=== PATIENT | female | born 1955 | race Caucasian/White ===

== ENCOUNTER 2016-08-16 11:59 | Emergency (ER) | payer MEDICARE ==
[2016-08-16] MEDS ORDERED: ONDANSETRON 4 MG TAB.RAPDIS PO ONE (13:04)
[2016-08-16] MEDS ORDERED: ACETAMINOPHEN 325 MG TABLET PO ONE (13:04)
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
[2016-08-16 13:45] LABS: APPEARANCE,URINE SLIGHTLY-CLOUDY; BILIRUBIN,URINE NEGATIVE (NEGATIVE); GLUCOSE, URINE NEGATIVE (NEGATIVE); KETONES,URINE NEGATIVE (NEGATIVE); LEUKOCYTE ESTERASE,URINE TRACE (NEGATIVE); NITRITE,URINE NEGATIVE (NEGATIVE); PROTEIN,URINE NEGATIVE (NEGATIVE); URINE SPECIFIC GRAVITY 1.015; UROBILINOGEN,URINE NEGATIVE mg/dL (<2.0)
[2016-08-16 16:13] VITALS: BP 126/84
== END 2016-08-16 16:00 | disposition home or self-care (01) ==
LOC: ER 11:59
DX: S09.90XA Unspecified injury of head, initial encounter (principal); M79.1 Myalgia; R51 Headache; W19.XXXA Unspecified fall, initial encounter; R35.0 Frequency of micturition; R39.15 Urgency of urination; R11.0 Nausea; Z87.891 Personal history of nicotine dependence
CPT/HCPCS: 99284; 87086; 81001; 71101; 70450; A9270 ×2; S0119

== ENCOUNTER → 2016-10-05 | Outpatient (CLI) | payer MEDICARE ==
--- NOTE | 2016-10-06 08:09 | WOMENS IMAGING REPORT ---
EXAM DESCRIPTION: BILAT SCREENING MAMMO W/CAD COMPLETED DATE/TIME: 10/05/2016 11:18 am REASON FOR STUDY: Z12.31, ROUTINE SCREENING MAMMO Z12.31 ENCNTR SCREEN MAMMOGRAM FOR MALIGNANT NEOP LASM OF GURPREET COMPARISON: None. TECHNIQUE: Standard craniocaudal and mediolateral oblique views of each breast recorded using CDNliona l acquisition. LIMITATIONS: None. FINDINGS: No masses, calcifications or architectural distortion. No areas of suspicion. Read with the assistance of CAD. .[facility] - R2 Cenova Version 1.3 .[facility] - R2 Cenova Version 1.3 .[facility] - R2 Cenova Version 2.4 .[facility] - R2 Cenova Version 2.4 .[facility] - R2 [employer] Version 9.2 IMPRESSION: NORMAL MAMMOGRAM. BIRADS 1. BREAST DENSITY: b. There are scattered areas of fibroglandular density. BIRAD: 1 NEGATIVE RECOMMENDATION: ROUTINE SCREENING COMMENT: The patient has been notified of the results by letter per MQSA requirements. Additional no tification policies are in place for contacting patient with suspicious or incomplete findings. Quality ID #[id number]: The [employer] recommends an annual screening mammogram for women aged 40 years or over. This facility utilizes a reminder system to ensure that all patients receive reminder letters, and/or direct phone calls for appointments. This includes reminders for routine scr eening mammograms, diagnostic mammograms, or other Breast Imaging Interventions when appropriate. Th is patient will be placed in the appropriate reminder system. The [employer] (ACR) has developed recommendations for screening MRI of the breast s in certain patient populations, to be used in conjunction with mammography. Breast MRI surveillanc e may be appropriate for women with more than 20% lifetime risk of developing breast cancer as deter mined by genetic testing, significant family history of the disease, or history of mantle radiation f or Hodgkins Disease. ACR Practice Guidelines 2008. TECHNICAL DOCUMENTATION: FINDING NUMBER: (1) ASSESSMENT: (1) JOB ID: [id number] [employer]- All Rights Reserved
== END ==
LOC: WI 10:22
PROVIDERS: ATTEND Family Medicine Geriatric Medicine
DX: Z12.31 Encounter for screening mammogram for malignant neoplasm of breast (principal)
CPT/HCPCS: 77067; G0202

== ENCOUNTER → 2016-11-08 | Outpatient (CLI) | payer MEDICARE ==
--- NOTE | 2016-11-08 10:07 | RADIOLOGY REPORT (SQ) ---
EXAM DESCRIPTION: CT FACIAL AREA WITHOUT COMPLETED DATE/TIME: 11/08/2016 9:00 am REASON FOR STUDY: RECURRENT SINUSITIS J01.11 ACUTE RECURRENT FRONTAL SINUSITIS COMPARISON: None. TECHNIQUE: Noncontrast scanning through the paranasal sinuses using bone algorithm. Reconstructed MPR images reviewed. All images stored on PACS. Images acquired for image guided surgery. All CT scanners at this facility use dose modulation, iterative reconstruction, and/or weight based d osing when appropriate to reduce radiation dose to as low as reasonably achievable (ALARA). [facility]: Dose Right [facility]: CareDose [facility]: Dose Right [facility]: Teradose 4D [facility]: Captimo RADIATION DOSE: 44.5 mGy. FINDINGS: NASAL PASSAGES: Clear. No polyps or masses. OSTEOMEATAL UNITS AND NASOFRONTAL DUCTS: On the right side, the maxillary sinus outlet has been surgi janet widened. It is patent on coronal image 25. On the left side, there is mucous membrane thicken ing along the maxillary sinus outlet on coronal image 23 and axial image 19. Mucous membrane thicken ing with as anterior superior septum in the medial left maxillary sinus. Ostiomeatal complex is pres ent, best shown on axial image 22 and coronal images 20 through 24. MAXILLARY SINUSES: Right maxillary sinus is well pneumatized and clear. . Maxillary sinus outlets ar e patent. ETHMOID SINUSES: Post endoscopic sinus surgery with bilateral partial resection of the ethmoid septa. SPHENOID SINUSES: Well-pneumatized and clear. Sphenoid sinus outlets surgically widened on axial imag e 25 and sagittal images 23 and 29. No pneumatized dorsal sella. FRONTAL SINUSES: Well-pneumatized and clear. MASTOID AIR CELLS: Clear. ORBITS: Normal and symmetrical. NASAL SEPTUM: Mild rightward nasal septal deviation No nasal septal spurs. TEMPOROMANDIBULAR JOINTS: Normal. TURBINATES: No pneumatized turbinates. MUCOPERIOSTEAL THICKENING: No. MUCOCELE: No. OTHER: No other significant findings. IMPRESSION: NO EVIDENCE OF ACUTE SINUSITIS. Prior endoscopic sinus surgery as above TECHNICAL DOCUMENTATION: JOB ID: [id number] Quality ID # [id number]: Final reports with documentation of one or more dose reduction techniques (e.g., Au tomated exposure control, adjustment of the mA and/or kV according to patient size, use of iterative reconstruction technique) 2010 [employer]- All Rights Reserved
== END ==
LOC: RAD 08:31
PROVIDERS: ATTEND Family Medicine Geriatric Medicine
DX: J01.11 Acute recurrent frontal sinusitis (principal)
CPT/HCPCS: 70486

== ENCOUNTER 2016-12-04 12:19 | Emergency (ER) | payer MEDICARE ==
[2016-12-04 12:24] VITALS: BP 129/74
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
[2016-12-04] MEDS ORDERED: ACETAMINOPHEN 325 MG TABLET PO ONE (12:39)
[2016-12-04] MEDS ORDERED: BACITRACIN ZINC OINTMENT 15 GM TP ONE (12:59)
== END 2016-12-04 13:26 | disposition home or self-care (01) ==
LOC: ER 12:19
DX: T25.211A Burn of second degree of right ankle, initial encounter (principal); T31.0 Burns involving less than 10% of body surface; R21 Rash and other nonspecific skin eruption; X12.XXXA Contact with other hot fluids, initial encounter
CPT/HCPCS: 99283; A9270; J3490

== ENCOUNTER → 2017-01-17 | Outpatient (CLI) | payer MEDICARE ==
[2017-01-17 09:43] LABS: ABSOLUTE BASOPHILS # (AUTO) 0.1 10^3/uL (0.0-0.2); ABSOLUTE EOSINOPHILS # (AUTO) 0.3 10^3/uL (0.0-0.6); ABSOLUTE LYMPHOCYTES (AUTO) 2.8 10^3/uL (0.5-4.7); ABSOLUTE MONOCYTES (AUTO) 0.5 10^3/uL (0.1-1.4); ABSOLUTE NEUT (AUTO) 4.2 10^3/uL (1.7-8.2); BASOPHILS % (AUTO) 0.9 % (0-2); EOSINOPHILS % (AUTO) 3.7 % (0-6); HEMATOCRIT 38.8 % (36.0-47.0); HEMOGLOBIN 12.8 g/dL (12.0-15.5); HGB HCT DIFFERENCE -0.4; LYMPHOCYTES % (AUTO) 35.2 % (13-45); MEAN CORPUSCULAR HEMOGLOBIN 28.9 pg (27.0-33.4); MEAN CORPUSCULAR HGB CONC 32.9 g/dL (32.0-36.0); MEAN CORPUSCULAR VOLUME 88 fl (80-97); MONOCYTES % (AUTO) 6.9 % (3-13); RED BLOOD COUNT 4.41 10^6/uL (3.72-5.28); RED CELL DISTRIBUTION WIDTH 13.8 % (11.5-14.0); SEGMENTED NEUTROPHILS % (AUTO) 53.3 % (42-78); WHITE BLOOD COUNT 7.9 10^3/uL (4.0-10.5)
[2017-01-17 09:54] LABS: ALANINE AMINOTRANSFERASE 21 U/L (9-52); ALKALINE PHOSPHATASE 126 U/L (38-126); ANION GAP 8 (5-19); ASPARTATE AMINO TRANSFERASE 21 U/L (14-36); BILIRUBIN,DIRECT 0.4 mg/dL (0.0-0.4); BILIRUBIN,TOTAL 0.5 mg/dL (0.2-1.3); BLOOD UREA NITROGEN 23 mg/dL (7-20); CALCIUM 9.9 mg/dL (8.4-10.2); CARBON DIOXIDE 31 mmol/L (22-30); CHLORIDE 105 mmol/L (98-107); CHOLESTEROL 214.87 mg/dL (0-200); CREATININE RESULT 0.97 mg/dL (0.52-1.25); Direct HDL 51 mg/dL (>40); GLUCOSE 98 mg/dL (75-110); SODIUM 143.8 mmol/L (137-145); TOTAL PROTEIN 7.1 g/dL (6.3-8.2); TRIGLYCERIDES 168 mg/dL (<150)
[2017-01-17 10:05] LABS: DIRECT LDL 137 mg/dL (<100)
[2017-01-17 10:44] LABS: VLDL CHOLESTEROL 33.6 mg/dL (10-31)
[2017-01-18 12:38] LABS: CREATININE URINE 88.3 mg/dL (Not Estab.); MICROALBUMIN URINE 6.8 ug/mL (Not Estab.)
== END ==
LOC: OD 08:17
PROVIDERS: ATTEND Family Medicine Geriatric Medicine
DX: E11.9 Type 2 diabetes mellitus without complications (principal); E78.5 Hyperlipidemia, unspecified; E55.9 Vitamin D deficiency, unspecified; E53.9 Vitamin B deficiency, unspecified; Z79.899 Other long term (current) drug therapy
CPT/HCPCS: 36415; 80053; 80061; 82043; 82306; 82570; 82607; 83036; 84443; 85025

== ENCOUNTER → 2017-04-12 | Outpatient (CLI) | payer MEDICARE ==
[2017-04-12 10:54] LABS: ALANINE AMINOTRANSFERASE 28 U/L (9-52); ASPARTATE AMINO TRANSFERASE 20 U/L (14-36); CHOLESTEROL 205.64 mg/dL (0-200); Direct HDL 56 mg/dL (>40); TRIGLYCERIDES 140 mg/dL (<150)
[2017-04-12 11:05] LABS: DIRECT LDL 127 mg/dL (<100)
== END ==
LOC: OD 09:02
PROVIDERS: ATTEND Family Medicine Geriatric Medicine
DX: E11.42 Type 2 diabetes mellitus with diabetic polyneuropathy (principal); E78.5 Hyperlipidemia, unspecified; Z79.899 Other long term (current) drug therapy
CPT/HCPCS: 36415; 80061; 83036; 84450; 84460

== ENCOUNTER → 2017-08-17 | Outpatient (CLI) | payer MEDICARE ==
[2017-08-17 09:34] LABS: ALANINE AMINOTRANSFERASE 18 U/L (9-52); ASPARTATE AMINO TRANSFERASE 19 U/L (14-36); CHOLESTEROL 192.39 mg/dL (0-200); TRIGLYCERIDES 164 mg/dL (<150)
[2017-08-17 09:45] LABS: DIRECT LDL 104 mg/dL (<100)
[2017-08-17 09:49] LABS: VLDL CHOLESTEROL 32.8 mg/dL (10-31)
[2017-08-18 11:40] LABS: CREATININE URINE 70.5 mg/dL (Not Estab.); MICROALBUMIN URINE 4.9 ug/mL (Not Estab.)
== END ==
LOC: OD 08:24
PROVIDERS: ATTEND Family Medicine Geriatric Medicine
DX: E11.9 Type 2 diabetes mellitus without complications (principal); I10 Essential (primary) hypertension; E78.5 Hyperlipidemia, unspecified; Z29.9 Encounter for prophylactic measures, unspecified
CPT/HCPCS: 36415; 80061; 82043; 82570; 83036; 84450; 84460

== ENCOUNTER 2017-11-20 19:17 | Inpatient (IN) | payer MEDICARE ==
[2017-11-20] MEDS ORDERED: MORPHINE SULFATE 10 MG/ML INJ IV ONE ×2 (20:05→23:46)
[2017-11-20] MEDS ORDERED: ONDANSETRON 4 MG TAB.RAPDIS PO ONE (20:06)
--- NOTE | 2017-11-20 20:08 | ER Document Report ---
ED Medical Screen (RME) - General Chief Complaint: Abdominal Pain Stated Complaint: ABDOMINAL PAIN Time Seen by Provider: 11/20/17 19:57 Mode of Arrival: Ambulatory Information source: Patient Notes: 62-year-old female with hypertension, hyperlipidemia, type 2 diabetes, hypothyroidism, degenerative disc disease presents with complaint of right lower quadrant pain that started 1 day prior to arrival. Patient describes the pain as stabbing, intermittent with radiation to her right flank. Patient has had associated nausea with multiple episodes of vomiting. She has not had any diarrhea and reports her last bowel movement was today. She denies any black or bloody stools. She states that she has not been able to even hold down water since this morning. She denies any sick contacts, recent travel, recent antibiotic use. Patient's surgical history includes hysterectomy, gastric bypass and cholecystectomy. She is unsure of whether or not they took her appendix with the hysterectomy. Patient denies any associated chest pain, shortness of breath. I have greeted and performed a rapid initial assessment of this patient. A comprehensive ED assessment and evaluation of the patient including analysis of labs and imaging ( if obtained) and completion of medical decision making will be conducted by an additional ED provider. PHYSICAL EXAMINATION: GENERAL: Appears to be in pain rocking back and forth on the chair HEAD: Atraumatic, normocephalic. EYES: Pupils equal round extraocular movements intact, conjunctiva are normal. ENT: Nares patent NECK: Normal range of motion LUNGS: No respiratory distress Musculoskeletal: Normal range of motion NEUROLOGICAL: Normal speech, normal gait. PSYCH: Normal mood, normal affect. SKIN: Warm, Dry, normal turgor, no rashes or lesions noted. TRAVEL OUTSIDE OF THE [place] IN LAST 30 DAYS: No - Related Data Allergies/Adverse Reactions: ceftriaxone sodium [From Rocephin] Allergy (Severe, Verified 12/04/16 12:24) tongue swelling,DIFFICULTY BREATHING sulfamethoxazole [From Bactrim] Allergy (Severe, Verified 12/04/16 12:24) rash trimethoprim [From Bactrim] Allergy (Severe, Verified 12/04/16 12:24) rash Cephalosporins Allergy (Unknown, Verified 12/04/16 12:24) ? Past Medical History - Past Medical History Cardiac Medical History: Reports: Hx Hypercholesterolemia - CAD, Hx Hypertension Denies: Hx Atrial Fibrillation, Hx Congestive Heart Failure, Hx Coronary Artery Disease, Hx Heart Attack, Hx Peripheral Vascular Disease, Hx Pulmonary Embolism, Hx Heart Murmur Pulmonary Medical History: Reports: Hx Bronchitis, Hx Pneumonia Denies: Hx Asthma, Hx COPD, Hx Respiratory Failure, Hx Sleep Apnea, Hx Tuberculosis Neurological Medical History: Denies: Hx Cerebrovascular Accident, Hx Seizures Endocrine Medical History: Reports: Hx Diabetes Mellitus Type 2 - IDDM., Hx Hypothyroidism. Denies: Hx Graves' Disease, Hx Hyperthyroidism Renal/ Medical History: Reports: Hx Ovarian Cysts - HAD HYSTERECTOMY. Denies : Hx End Stage Renal Disease, Hx Kidney Stones, Hx Peritoneal Dialysis, Hx Pelvic Inflammatory Disease Malignancy Medical History: Denies: Hx Breast Cancer, Hx Cervical Cancer, Hx Leukemia, Hx Lung Cancer, Hx Ovarian Cancer GI Medical History: Reports: Hx Gastritis, Hx Gastroesophageal Reflux Disease, Hx Hiatal Hernia, Hx Colonoscopy, Hx Endoscopy. Denies: Hx Crohn's Disease, Hx Irritable Bowel, Hx Liver Failure, Hx Pancreatitis, Hx Ulcer Musculoskeltal Medical History: Reports Hx Arthritis, Denies Hx Fibromyalgia, Denies Hx Multiple Sclerosis, Denies Hx Muscular Dystrophy, Reports Hx Muscle Spasm - neck and low back, see's bashir pain mangement, receiving injections, Reports Hx Musculoskeletal Deformity - Kyphosis, Reports Hx Musculoskeletal Trauma Psychiatric Medical History: Reports: Hx Anxiety, Hx Depression - WITH ANXIETY Denies: Hx Bipolar Disorder, Hx Dementia, Hx Post Traumatic Stress Disorder, Hx Schizophrenia Traumatic Medical History: Reports: Hx Fractures - Wrist and orbital, Hx Pneumothorax Infectious Medical History: Denies: Hx HIV Past Surgical History: Reports: Hx Cardiac Surgery - ASD repair, Hx Section, Hx Cholecystectomy, Hx Gastric Bypass Surgery - 2005, Hx Hysterectomy, Hx Orthopedic Surgery - Knee replacement. Denies: Hx Appendectomy, Hx Bowel Surgery, Hx Colostomy, Hx Coronary Artery Bypass Graft, Hx Herniorrhaphy, Hx Mastectomy, Hx Pacemaker, Hx Tonsillectomy, Hx Tubal Ligation - Immunizations Immunizations up to date: Yes Hx Diphtheria, Pertussis, Tetanus Vaccination: Yes Physical Exam - Vital signs Vitals: Temp Pulse Resp BP Pulse Ox 99.2 F 79 17 129/65 H 97 11/20/17 19:35 11/20/17 19:35 11/20/17 19:35 11/20/17 19:35 11/20/17 19:35 Course - Vital Signs Vital signs: Temp Pulse Resp BP Pulse Ox 99.2 F 79 17 129/65 H 97 11/20/17 19:35 11/20/17 19:35 11/20/17 19:35 11/20/17 19:35 11/20/17 19:35 Doctor's Discharge - Discharge Referrals: OTTONIEL ROSSI MD [Primary Care Provider] - Follow up as needed
--- NOTE | 2017-11-20 20:27 | ER Document Report ---
ED General - General Chief Complaint: Abdominal Pain Stated Complaint: ABDOMINAL PAIN Time Seen by Provider: 11/20/17 19:57 Mode of Arrival: Ambulatory Information source: Patient Notes: 62-year-old female presents emergency department with complaints of right lower quadrant pain. This started a day prior to arrival. Patient describes the pain as a sharp and stabbing sensation. Intermittent in nature. She is having associated nausea and vomiting. She denies any diarrhea. Patient denies any hematemesis, hematuria, melena, hematochezia. Patient has had hysterectomy, gastric bypass, cholecystectomy. Patient is unsure she still has her appendix. TRAVEL OUTSIDE OF THE [place] IN LAST 30 DAYS: No - HPI Onset: This morning Onset/Duration: Sudden Quality of pain: Sharp, Stabbing Severity: Moderate Associated symptoms: Nausea, Vomiting Exacerbated by: Denies Relieved by: Denies Similar symptoms previously: No Recently seen / treated by doctor: No - Related Data Allergies/Adverse Reactions: ceftriaxone sodium [From Rocephin] Allergy (Severe, Verified 12/04/16 12:24) tongue swelling,DIFFICULTY BREATHING sulfamethoxazole [From Bactrim] Allergy (Severe, Verified 12/04/16 12:24) rash trimethoprim [From Bactrim] Allergy (Severe, Verified 12/04/16 12:24) rash Cephalosporins Allergy (Unknown, Verified 12/04/16 12:24) ? Past Medical History - General Information source: Patient - Social History Smoking Status: Never Smoker Frequency of alcohol use: None Family History: Arthritis, COPD, CVA, DM, Hyperlipidemia, Hypertension, Malignancy, Thyroid Disfunction Patient has suicidal ideation: No Patient has homicidal ideation: No - Past Medical History Cardiac Medical History: Reports: Hx Hypercholesterolemia - CAD, Hx Hypertension Denies: Hx Atrial Fibrillation, Hx Congestive Heart Failure, Hx Coronary Artery Disease, Hx Heart Attack, Hx Peripheral Vascular Disease, Hx Pulmonary Embolism, Hx Heart Murmur Pulmonary Medical History: Reports: Hx Bronchitis, Hx Pneumonia Denies: Hx Asthma, Hx COPD, Hx Respiratory Failure, Hx Sleep Apnea, Hx Tuberculosis Neurological Medical History: Denies: Hx Cerebrovascular Accident, Hx Seizures Endocrine Medical History: Reports: Hx Diabetes Mellitus Type 2 - IDDM., Hx Hypothyroidism. Denies: Hx Graves' Disease, Hx Hyperthyroidism Renal/ Medical History: Reports: Hx Ovarian Cysts - HAD HYSTERECTOMY. Denies : Hx End Stage Renal Disease, Hx Kidney Stones, Hx Peritoneal Dialysis, Hx Pelvic Inflammatory Disease Malignancy Medical History: Denies: Hx Breast Cancer, Hx Cervical Cancer, Hx Leukemia, Hx Lung Cancer, Hx Ovarian Cancer GI Medical History: Reports: Hx Gastritis, Hx Gastroesophageal Reflux Disease, Hx Hiatal Hernia, Hx Colonoscopy, Hx Endoscopy. Denies: Hx Crohn's Disease, Hx Irritable Bowel, Hx Liver Failure, Hx Pancreatitis, Hx Ulcer Musculoskeletal Medical History: Reports Hx Arthritis, Denies Hx Fibromyalgia, Denies Hx Multiple Sclerosis, Denies Hx Muscular Dystrophy, Reports Hx Muscle Spasm - neck and low back, see's bashir pain mangement, receiving injections, Reports Hx Musculoskeletal Deformity - Kyphosis, Reports Hx Musculoskeletal Trauma Psychiatric Medical History: Reports: Hx Anxiety, Hx Depression - WITH ANXIETY Denies: Hx Bipolar Disorder, Hx Dementia, Hx Post Traumatic Stress Disorder, Hx Schizophrenia Traumatic Medical History: Reports: Hx Fractures - Wrist and orbital, Hx Pneumothorax Infectious Medical History: Denies: Hx HIV Past Surgical History: Reports: Hx Cardiac Surgery - ASD repair, Hx Section, Hx Cholecystectomy, Hx Gastric Bypass Surgery - 2005, Hx Hysterectomy, Hx Orthopedic Surgery - Knee replacement. Denies: Hx Appendectomy, Hx Bowel Surgery, Hx Colostomy, Hx Coronary Artery Bypass Graft, Hx Herniorrhaphy, Hx Mastectomy, Hx Pacemaker, Hx Tonsillectomy, Hx Tubal Ligation - Immunizations Immunizations up to date: Yes Hx Diphtheria, Pertussis, Tetanus Vaccination: Yes Hx Pneumococcal Vaccination: 05/09/06 Review of Systems - Review of Systems Constitutional: No symptoms reported EENT: No symptoms reported Cardiovascular: No symptoms reported Respiratory: No symptoms reported Gastrointestinal: Abdominal pain, Nausea, Vomiting Genitourinary: No symptoms reported Female Genitourinary: No symptoms reported Musculoskeletal: No symptoms reported Skin: No symptoms reported Neurological/Psychological: No symptoms reported -: Yes All other systems reviewed and negative Physical Exam - Vital signs Vitals: Temp Pulse Resp BP Pulse Ox 99.2 F 79 17 129/65 H 97 11/20/17 19:35 11/20/17 19:35 11/20/17 19:35 11/20/17 19:35 11/20/17 19:35 Interpretation: Normal - Notes Notes: PHYSICAL EXAMINATION: GENERAL: Well-appearing, well-nourished and in no acute distress. HEAD: Atraumatic, normocephalic. EYES: Pupils equal round and reactive to light, extraocular movements intact, conjunctiva are normal. ENT: Nares patent, oropharynx clear without exudates. Moist mucous membranes. NECK: Normal range of motion, supple without lymphadenopathy LUNGS: Breath sounds clear to auscultation bilaterally and equal. No wheezes rales or rhonchi. HEART: Regular rate and rhythm without murmurs ABDOMEN: Soft, tenderness to palpation in the right lower quadrant, nondistended abdomen. No guarding, no rebound. No masses appreciated. Female : deferred Musculoskeletal: Normal range of motion, no pitting or edema. No cyanosis. NEUROLOGICAL: Cranial nerves grossly intact. Normal speech, normal gait. Normal sensory, motor exams PSYCH: Normal mood, normal affect. SKIN: Warm, Dry, normal turgor, no rashes or lesions noted. Course - Re-evaluation Re-evalutation: 11/20/17 23:46 Dr. Angelo contacted for ileus vs partial small bowel obstruction. He does not feel any intervention is needed at this time. 11/20/17 23:[address] Martinez. He does not want to admit this patient because he feels this is a surgical case. Dr. Angelo consulted again. He recommends CT with oral contrast. If no clear small bowel obstruction he wants admit to hospitalist. 11/21/17 00:11 Patient turned over at end of shift. - Vital Signs Vital signs: Temp Pulse Resp BP Pulse Ox 99.2 F 79 17 129/65 H 97 11/20/17 19:35 11/20/17 19:35 11/20/17 19:35 11/20/17 19:35 11/20/17 19:35 - Laboratory Result Diagrams: 11/20/17 21:40 11/20/17 21:40 Laboratory results interpreted by me: 11/20/17 11/20/17 11/20/17 21:40 21:40 23:15 WBC 12.3 H Absolute Neutrophils 9.2 H Sodium 146.4 H BUN 29 H Est GFR ( Amer) 59 L Est GFR (Non-Af Amer) 49 L Ur Leukocyte Esterase MODERATE H Discharge - Discharge Referrals: OTTONIEL ROSSI MD [COMMUNITY BASED STAFF] - Follow up as needed
[2017-11-20 22:04] LABS: ABSOLUTE BASOPHILS # (AUTO) 0.1 10^3/uL (0.0-0.2); ABSOLUTE EOSINOPHILS # (AUTO) 0.1 10^3/uL (0.0-0.6); ABSOLUTE LYMPHOCYTES (AUTO) 2.1 10^3/uL (0.5-4.7); ABSOLUTE MONOCYTES (AUTO) 0.8 10^3/uL (0.1-1.4); ABSOLUTE NEUT (AUTO) 9.2 10^3/uL (1.7-8.2); BASOPHILS % (AUTO) 0.8 % (0-2); EOSINOPHILS % (AUTO) 0.9 % (0-6); HEMATOCRIT 39.7 % (36.0-47.0); HEMOGLOBIN 13.6 g/dL (12.0-15.5); LYMPHOCYTES % (AUTO) 17.1 % (13-45); MEAN CORPUSCULAR HEMOGLOBIN 31.1 pg (27.0-33.4); MEAN CORPUSCULAR HGB CONC 34.3 g/dL (32.0-36.0); MEAN CORPUSCULAR VOLUME 91 fl (80-97); MONOCYTES % (AUTO) 6.1 % (3-13); PLATELET COUNT 312 10^3/uL (150-450); RED BLOOD COUNT 4.37 10^6/uL (3.72-5.28); RED CELL DISTRIBUTION WIDTH 13.4 % (11.5-14.0); SEGMENTED NEUTROPHILS % (AUTO) 75.1 % (42-78); TOTAL CELLS COUNTED % (AUTO) 100 %; WHITE BLOOD COUNT 12.3 10^3/uL (4.0-10.5)
[2017-11-20 22:27] LABS: ALANINE AMINOTRANSFERASE 20 U/L (9-52); ALBUMIN 4.4 g/dL (3.5-5.0); ALKALINE PHOSPHATASE 99 U/L (38-126); ANION GAP 14 (5-19); ASPARTATE AMINO TRANSFERASE 31 U/L (14-36); BILIRUBIN,DIRECT 0.4 mg/dL (0.0-0.4); BILIRUBIN,TOTAL 0.5 mg/dL (0.2-1.3); BLOOD UREA NITROGEN 29 mg/dL (7-20); CALCIUM 9.9 mg/dL (8.4-10.2); CARBON DIOXIDE 25 mmol/L (22-30); CHLORIDE 107 mmol/L (98-107); GLUCOSE 106 mg/dL (75-110); LIPASE 96.4 U/L (23-300); POTASSIUM 4.5 mmol/L (3.6-5.0); SODIUM 146.4 mmol/L (137-145); TOTAL PROTEIN 7.9 g/dL (6.3-8.2)
[2017-11-20] MEDS ORDERED: NORMAL SALINE 1000 ML 1,000 ML IV ONE (23:22)
--- NOTE | 2017-11-20 23:32 | RADIOLOGY REPORT (SQ) ---
EXAM DESCRIPTION: CT ABDOMEN PELVIS WITH IV CONTRAST COMPLETED DATE/TME: 11/20/2017 20:06 CLINICAL HISTORY: Right lower quadrant abdominal pain. BUN29 CREA 1.13 COMPARISON: 10/30/2014 TECHNIQUE: CT of the abdomen and pelvis performed following IV administration of 92 mL of Isovue-370. DLP: 1925.70 mGycm FINDINGS: Lung Bases: The visualized lung bases are clear. Coronary artery atherosclerosis. Bones: No destructive bone lesions identified. Age-indeterminate compression deformity of the T11 vertebral body. Abdomen: Liver: The liver has normal size and density. No intrahepatic mass or biliary dilatation. Gallbladder: Prior cholecystectomy. Spleen, Pancreas, and Adrenal Glands: The spleen, pancreas, and adrenal glands are unremarkable. Kidneys: The kidneys have normal size and contour without evidence of solid mass or hydronephrosis. Vasculature: Atherosclerotic calcification The portal vein is patent. The proximal visceral and renal arteries are patent. Stomach: Postoperative change of the stomach. Other: No free intraperitoneal air. No free fluid or lymphadenopathy. Pelvis: Bladder: Urinary bladder is unremarkable. Bowel: Scattered diverticula colon without pericolic inflammatory change. Dilated loops of small bowel throughout the abdomen without definite transition point identified. Appendix: Normal appendix. Pelvis: Prostate is not enlarged. IMPRESSION: 1. Dilated loops of small bowel throughout the abdomen without well-defined transition point identified. These findings could be seen with ileus or may be related to partial obstruction at the ileocecal valve. 2. Scattered diverticula colon without acute diverticulitis. This exam was performed according to our departmental dose-optimization program, which includes automated exposure control, adjustment of the mA and/or kV according to patient size and/or use of iterative reconstruction technique.
[2017-11-20 23:40] LABS: APPEARANCE,URINE CLEAR; BILIRUBIN,URINE NEGATIVE (NEGATIVE); COLOR,URINE YELLOW; GLUCOSE, URINE NEGATIVE (NEGATIVE); KETONES,URINE NEGATIVE (NEGATIVE); LEUKOCYTE ESTERASE,URINE MODERATE (NEGATIVE); NITRITE,URINE NEGATIVE (NEGATIVE); PROTEIN,URINE NEGATIVE (NEGATIVE); URINE SPECIFIC GRAVITY 1.028; UROBILINOGEN,URINE NEGATIVE mg/dL (<2.0)
[2017-11-20] MEDS ORDERED: PROMETHAZINE HCL INJ 25 MG/1 ML VIAL IV ONE (23:48)
[2017-11-21] MEDS ORDERED: PROMETHAZINE HCL INJ 25 MG/1 ML VIAL IM ONE (00:38)
--- NOTE | 2017-11-21 04:26 | RADIOLOGY REPORT (SQ) ---
EXAM DESCRIPTION: CT ABDOMEN PELVIS WITHOUT IV CONTRAST COMPLETED DATE/TME: 11/20/2017 23:58 CLINICAL HISTORY: Diffuse COMPARISON: 11/20/2017 TECHNIQUE: CT of the abdomen and pelvis without IV contrast. Oral contrast administered. Evaluation of the solid organs and vasculature is suboptimal due to lack of IV contrast. DLP: 938.65 mGy-cm FINDINGS: Lung Bases: The visualized lung bases are clear. Coronary artery atherosclerosis. Bones: No destructive bone lesions identified. Stable age-indeterminate compression deformity of T11 Abdomen: Liver: The liver has normal size and density. Gallbladder: No calcified gallstones. Spleen, Pancreas, and Adrenal Glands: The spleen, pancreas, and adrenal glands are unremarkable. Kidneys: The kidneys have normal size and contour without evidence of hydronephrosis. No obstructing ureteral calculi. Vasculature: Aortoiliac atherosclerosis. IVC is unremarkable. Stomach: Postoperative change of the stomach. Other: No free intraperitoneal air. No free fluid or lymphadenopathy. Pelvis: Bladder: Urinary bladder is unremarkable. Bowel: Scattered diverticula colon. Oral contrast administered. Redemonstrated diffusely dilated loops of distal small bowel throughout the abdomen without transition point. Oral contrast does not proceed to the ileocecal valve. Appendix: Normal appendix. Pelvis: Prostate is not enlarged. IMPRESSION: 1. Redemonstrated dilated loops of distal small bowel without definite finding transition point identified. Administered oral contrast does not proceed throughout the entire length of the small bowel. Contrast is not visualized proceeding to the ileocecal valve into the colon. These findings could be seen with ileus or partial obstruction at the level of the ileocecal valve. 2. Scattered diverticula of the colon. This exam was performed according to our departmental dose-optimization program, which includes automated exposure control, adjustment of the mA and/or kV according to patient size and/or use of iterative reconstruction technique.
[2017-11-21] MEDS ORDERED: LIDOCAINE 2% JELLY 5 ML TUBE TOP ONE (04:47)
[2017-11-21] MEDS ORDERED: INSULIN LISPRO 100 UNIT/ML 3 ML VIAL SUBCUT PRN (04:48)
[2017-11-21] MEDS ORDERED: DEXTROSE 40% GEL 15 GM TUBE PO PRN ×2 (04:48)
[2017-11-21] MEDS ORDERED: IPRATROPIUM/ALBUTEROL 0.5-2.5 MG/3 ML AMPUL NEB PRN (04:48)
[2017-11-21] MEDS ORDERED: GLUCAGON,HUMAN RECOMB 1 MG INJ IM PRN (04:48)
[2017-11-21] MEDS ORDERED: DEXTROSE 50%-WATER 25 GM/50 ML DISP.SYRIN IV PRN ×2 (04:48)
[2017-11-21] MEDS ORDERED: MIDAZOLAM 2 MG/2 ML INJ IV ONE (04:50)
[2017-11-21] MEDS ORDERED: LACTULOSE SYRUP 20 GM/30 ML UDCUP PR ONE (04:51)
[2017-11-21] MEDS ORDERED: DEXTROSE 5%-1/2 NORMAL SALINE 1,000 ML IV ONE (04:52)
[2017-11-21] MEDS: HEPARIN SOD (PORCINE) 5,000 UNIT/ML 1 ML SYRINGE SUBCUT SCH ×3 (05:31→21:11)
[2017-11-21] MEDS ORDERED: HYDRALAZINE HCL INJ/PF 20 MG/1 ML SDV IV PRN (05:40)
--- NOTE | 2017-11-21 05:52 | PDOC H&P ---
History of Present Illness Admission Date/PCP: 11/21/17 05:02 JAXON MCCORMICK MD Patient complains of: Abdominal pain, distention and nausea History of Present Illness: ESTRADA TORRES is a 62 year old female with a past medical history of diabetes, depression, hypertension, dyslipidemia and chronic pain. She presents 18 hours following the abrupt onset of abdominal pain with vomiting of gastric content. Pain, shortness of breath or diaphoresis. She denies previous episode, constipation and otherwise feels well. In the emergency room she has a CT abdomen with contrast showing ileus versus small bowel obstruction. History includes multiple pelvic and abdominal surgeries, gastric bypass, cholecystectomy and section 3. Following contrast administration she has several episodes of loose stool but persistent abdominal pain, NG tube was placed and she is referred to the hospitalist for admission. Past Medical History Cardiac Medical History: Reports: Hyperlipidema - CAD, Hypertension Denies: Atrial Fibrillation, Congestive Heart Failure, Coronary Artery Disease, Myocardial Infarction, Peripheral Vascular Disease, Pulmonary Embolism , Heart Murmur Pulmonary Medical History: Reports: Bronchitis, Pneumonia Denies: Asthma, Chronic Obstructive Pulmonary Disease (COPD), Respiratory Failure, Sleep Apnea, Tuberculosis Neurological Medical History: Denies: Seizures Endocrine Medical History: Reports: Diabetes Mellitus Type 2 - IDDM., Hypothyroidism Denies: Hyperthyroidism Renal/ Medical History: Denies: End Stage Renal Disease Malignancy Medical History: Denies: Breast Cancer, Cervical Cancer, Leukemia, Lung Cancer, Ovarian Cancer GI Medical History: Reports: Gastroesophageal Reflux Disease, Hiatal Hernia Denies: Crohn's Disease Musculoskeltal Medical History: Reports: Arthritis Denies: Fibromyalgia Psychiatric Medical History: Reports: Depression - WITH ANXIETY Denies: Bipolar Disorder, Dementia, Post Traumatic Stress Disorder Traumatic Medical History: Reports: Pneumothorax Hematology: Reports: Anemia - BLOOD TRANSFUSION (2012) Denies: Hemophilia, Sickle Cell Disease Infectious Medical History: Denies: HIV Past Surgical History Past Surgical History: Reports: Section, Cholecystectomy, Gastric Bypass Surgery - 2006, Hysterectomy, Orthopedic Surgery - Knee replacement Denies: Amputation, Appendectomy, Colostomy, Coronary Artery Bypass Graft, Herniorrhaphy, Mastectomy, Pacemaker, Tonsillectomy, Tubal Ligation Social History Information Source: Patient Smoking Status: Former Smoker Frequency of Alcohol Use: None Hx Recreational Drug Use: No Drugs: None Hx Prescription Drug Abuse: No - Advance Directive Resuscitation Status: Full Code Family History Family History: Arthritis, COPD, CVA, DM, Hyperlipidemia, Hypertension, Malignancy, Thyroid Disfunction Parental Family History Reviewed: Yes Children Family History Reviewed: Yes Sibling(s) Family History Reviewed.: Yes Medication/Allergy Home Medications: Bupropion HCl [Bupropion Xl] 1 tab PO QAM 04/20/15 Buspirone HCl 15 mg PO TID 04/20/15 Citalopram Hydrobromide [Citalopram HBr] 40 mg PO DAILY 04/20/15 Clotrimazole/Betamethasone Dip [Clotrimazole-Betamethasone Crm] 15 gm TP ASDIR PRN 04/20/15 Diclofenac Sodium [Voltaren] 1 applic TOP BID 04/20/15 Eletriptan Hydrobromide [Relpax] 40 mg PO ASDIR PRN 04/20/15 Furosemide 40 mg PO DAILY 04/20/15 Insulin Glargine,Hum.rec.anlog [Lantus Insulin 100 Unit/mL] 50 unit SQ BID 04/20 Levothyroxine Sodium 150 mcg PO DAILY 04/20/15 Metoprolol Tartrate 25 mg PO DAILY 04/20/15 Acetaminophen [Tylenol 325 mg Tablet] 650 mg PO QIDP PRN #0 tablet 04/23/15 Aspirin 81 mg PO DAILY 09/19/15 Atorvastatin Calcium 40 mg PO DAILY 09/19/15 Cholecalciferol (Vitamin D3) [Vitamin D3 1000 unit Chewable Tablet] 1,000 unit PO DAILY 09/19/15 Cyanocobalamin (Vitamin B-12) [Vitamin B12] 2,500 mcg PO DAILY 09/19/15 Dexlansoprazole [Dexilant 30 mg Capsule] 30 mg PO DAILY 09/19/15 Ferrous Sulfate [Feosol] 325 mg PO DAILY 09/19/15 Gabapentin 300 mg PO QID 09/19/15 Meloxicam [Mobic 15 mg Tablet] 15 mg PO DAILY 09/19/15 Montelukast Sodium 10 mg PO DAILY 09/19/15 Nitroglycerin [Nitrostat] 0.3 mg SL ASDIR PRN 09/19/15 Rivaroxaban [Xarelto 10 mg Tablet] 10 mg PO QHS #0 tablet 09/26/15 Allergies/Adverse Reactions: ceftriaxone sodium [From Rocephin] Allergy (Severe, Verified 12/04/16 12:24) tongue swelling,DIFFICULTY BREATHING sulfamethoxazole [From Bactrim] Allergy (Severe, Verified 12/04/16 12:24) rash trimethoprim [From Bactrim] Allergy (Severe, Verified 12/04/16 12:24) rash Cephalosporins Allergy (Unknown, Verified 12/04/16 12:24) ? Review of Systems Constitutional: ABSENT: chills, fever(s), headache(s), weight gain, weight loss Eyes: ABSENT: visual disturbances Ears: ABSENT: hearing changes Cardiovascular: ABSENT: chest pain, dyspnea on exertion, edema, orthropnea, palpitations Respiratory: ABSENT: cough, hemoptysis Gastrointestinal: ABSENT: abdominal pain, constipation, diarrhea, hematemesis, hematochezia, nausea, vomiting Genitourinary: ABSENT: dysuria, hematuria Musculoskeletal: ABSENT: joint swelling Integumentary: ABSENT: rash, wounds Neurological: ABSENT: abnormal gait, abnormal speech, confusion, dizziness, focal weakness, syncope Psychiatric: ABSENT: anxiety, depression, homidical ideation, suicidal ideation Endocrine: ABSENT: cold intolerance, heat intolerance, polydipsia, polyuria Hematologic/Lymphatic: ABSENT: easy bleeding, easy bruising Physical Exam Vital Signs: Temp Pulse Resp BP Pulse Ox 98.2 F 89 20 118/51 L 95 11/21/17 03:47 11/21/17 03:47 11/21/17 03:47 11/21/17 03:47 11/21/17 03:47 General appearance: PRESENT: cooperative, mild distress, obese. ABSENT: disheveled Head exam: PRESENT: atraumatic, normocephalic Eye exam: PRESENT: conjunctiva pink, EOMI, PERRLA. ABSENT: scleral icterus Ear exam: PRESENT: normal external ear exam Mouth exam: PRESENT: moist, tongue midline Neck exam: ABSENT: carotid bruit, JVD, lymphadenopathy, thyromegaly Respiratory exam: PRESENT: clear to auscultation joanne. ABSENT: rales, rhonchi, wheezes Cardiovascular exam: PRESENT: RRR. ABSENT: diastolic murmur, rubs, systolic murmur Pulses: PRESENT: normal dorsalis pedis pul Vascular exam: PRESENT: normal capillary refill GI/Abdominal exam: PRESENT: diminished bowel sounds, distended, soft, tenderness. ABSENT: ascites, firm, guarding, normal bowel sounds Rectal exam: PRESENT: deferred Extremities exam: PRESENT: full ROM. ABSENT: calf tenderness, clubbing, pedal edema Neurological exam: PRESENT: alert, awake, oriented to person, oriented to place , oriented to time, oriented to situation, CN II-XII grossly intact. ABSENT: motor sensory deficit Psychiatric exam: PRESENT: appropriate affect, normal mood. ABSENT: homicidal ideation, suicidal ideation Skin exam: PRESENT: dry, intact, warm. ABSENT: cyanosis, rash Results Impressions: Abdomen/Pelvis CT 11/20/17 23:58 IMPRESSION: 1. Redemonstrated dilated loops of distal small bowel without definite finding transition point identified. Administered oral contrast does not proceed throughout the entire length of the small bowel. Contrast is not visualized proceeding to the ileocecal valve into the colon. These findings could be seen with ileus or partial obstruction at the level of the ileocecal valve. 2. Scattered diverticula of the colon. This exam was performed according to our departmental dose-optimization program, which includes automated exposure control, adjustment of the mA and/or kV according to patient size and/or use of iterative reconstruction technique. Assessment & Plan - Diagnosis (1) Partial small bowel obstruction Is this a current diagnosis for this admission?: Yes Plan: Complicated by multiple abdominal and pelvic surgeries. Bowel rest, NG tube to intermittent suction, symptomatic management and surgical consult. Follow-up CBC and chemistry (2) Hypertension Is this a current diagnosis for this admission?: Yes Plan: IV hydralazine as needed (3) Diabetes Is this a current diagnosis for this admission?: Yes Plan: Hold outpatient regiment with Humalog sliding scale every 6 hours while n.p.o. - Time Time Spent: 50 to 70 Minutes - Inpatient Certification Medical Necessity: Need Close Monitoring Due to Risk of Patient Decompensation
[2017-11-21 06:07] LABS: PHOSPHORUS 5.2 mg/dL (2.5-4.5)
--- NOTE | 2017-11-21 07:56 | RADIOLOGY REPORT (SQ) ---
EXAM DESCRIPTION: CHEST SINGLE VIEW COMPLETED DATE/TIME: 11/21/2017 6:43 am REASON FOR STUDY: NGT placement confirmation COMPARISON: CT abdomen pelvis 11/21/2017 Two-view chest 09/04/2015 EXAM PARAMETERS: NUMBER OF VIEWS: One view. TECHNIQUE: Single frontal radiographic view of the chest acquired. RADIATION DOSE: NA LIMITATIONS: AP chest film for nasogastric tube placement FINDINGS: AP portable chest/upper abdomen film for nasogastric tube placement. Nasogastric tube tip and side port is in the stomach. Stomach is partially decompressed. Bibasilar atelectasis is present. Persistent borderline dilated small bowel loops with air-fluid levels in the mid epigastrium IMPRESSION: Nasogastric tube tip and side port in the stomach TECHNICAL DOCUMENTATION: JOB ID: [id number] [employer]- All Rights Reserved Reading location - IP/workstation name: [email or web address]
--- NOTE | 2017-11-21 10:15 | Progress Note ---
Provider Note Provider Note: ESTRADA TORRES is a 62 year old female with a past medical history of diabetes, depression, hypertension, dyslipidemia and chronic pain. Patient presented with 18-hour history of abdominal pain. Her CT scan of the abdomen and pelvis reported as ileus versus small bowel obstruction. Patient kept n.p.o., NG tube inserted and she is being hydrated cautiously. Of note patient has multiple bowel surgery. This morning I consulted Dr. Porter for further evaluation and management. Accepted the patient I will be her primary attending.
[2017-11-21] MEDS: ASPIRIN 81 MG TABLET, CHEWABLE PO SCH (11:56)
[2017-11-21] MEDS: KETOROLAC TROMETHAMINE INJ/PF 30 MG/1 ML SDV IV PRN ×2 (13:16→20:23)
[2017-11-21] MEDS ORDERED: NORMAL SALINE 1000 ML 1,000 ML IV PRN (15:53)
[2017-11-21] MEDS ORDERED: DEXTROSE 5%-NORMAL SALINE 1,000 ML IV PRN (16:32)
--- NOTE | 2017-11-21 20:18 | PDOC CONSULTATION ---
Consultation Consult Date: 11/21/17 Consult reason:: abdominal pains with N/V History of Present Illness Admission Date/PCP: 11/21/17 05:02 JAXON MCCORMICK MD History of Present Illness: ESTRADA TORRES is a 62 year old female with history of 3 CS, Lap Felicia prior to gastric bypass in 2006, c/o upper abdominal pains with N/V past 2-3 days. Went to ED last night and had a CT scan which showed parial SBO. This am had diarrhea with flatus. Past Medical History Cardiac Medical History: Reports: Hyperlipidema - CAD, Hypertension Denies: Atrial Fibrillation, Congestive Heart Failure, Coronary Artery Disease, Myocardial Infarction, Peripheral Vascular Disease, Pulmonary Embolism , Heart Murmur Pulmonary Medical History: Reports: Bronchitis, Pneumonia Denies: Asthma, Chronic Obstructive Pulmonary Disease (COPD), Respiratory Failure, Sleep Apnea, Tuberculosis Neurological Medical History: Denies: Seizures Endocrine Medical History: Reports: Diabetes Mellitus Type 2 - IDDM., Hypothyroidism Denies: Hyperthyroidism Renal/ Medical History: Denies: End Stage Renal Disease Malignancy Medical History: Denies: Breast Cancer, Cervical Cancer, Leukemia, Lung Cancer, Ovarian Cancer GI Medical History: Reports: Gastroesophageal Reflux Disease, Hiatal Hernia Denies: Crohn's Disease Musculoskeltal Medical History: Reports: Arthritis Denies: Fibromyalgia Psychiatric Medical History: Reports: Depression - WITH ANXIETY Denies: Bipolar Disorder, Dementia, Post Traumatic Stress Disorder Traumatic Medical History: Reports: Pneumothorax Hematology: Reports: Anemia - BLOOD TRANSFUSION (2012) Denies: Hemophilia, Sickle Cell Disease Infectious Medical History: Denies: HIV Past Surgical History Past Surgical History: Reports: Section, Cholecystectomy, Gastric Bypass Surgery - 2005, Hysterectomy, Orthopedic Surgery - Knee replacement Denies: Amputation, Appendectomy, Colostomy, Coronary Artery Bypass Graft, Herniorrhaphy, Mastectomy, Pacemaker, Tonsillectomy, Tubal Ligation Social History Smoking Status: Former Smoker Frequency of Alcohol Use: None Hx Recreational Drug Use: No Drugs: None Hx Prescription Drug Abuse: No - Advance Directive Resuscitation Status: Full Code Family History Family History: Arthritis, COPD, CVA, DM, Hyperlipidemia, Hypertension, Malignancy, Thyroid Disfunction Parental Family History Reviewed: Yes Children Family History Reviewed: No Sibling(s) Family History Reviewed.: No Medication/Allergy Home Medications: Aspirin [Aspirin EC] 81 mg PO DAILY 11/21/17 Atorvastatin Calcium [Lipitor 80 mg Tablet] 80 mg PO QHS 11/21/17 Bupropion HCl [Wellbutrin Xl 300mg 24hr Tablet] 300 mg PO QHS 11/21/17 Buspirone HCl [Buspar 15 mg Tablet] 15 mg PO TID 11/21/17 Cholecalciferol (Vitamin D3) [Vitamin D3 1000 Unit Tablet] 1,000 unit PO DAILY 11/21/17 Docusate Sodium [Colace 100 mg Capsule] 100 mg PO BID 11/21/17 Fluoxetine HCl [Prozac] 40 mg PO DAILY 11/21/17 Fluticasone Propionate [Flonase Nasal [place] 50 Mcg/[place] 16 gm] 1 spray NASL DAILY 11/21/17 Furosemide [Lasix 40 mg Tablet] 40 mg PO DAILY 11/21/17 Gabapentin [Neurontin 100 mg Capsule] 100 mg PO QHS 11/21/17 Insulin Glargine,Hum.rec.anlog [Toujeo Solostar] 70 units SQ QHS 11/21/17 Levothyroxine Sodium [Synthroid] 150 mg PO MOTUWETHFR@0600 11/21/17 Levothyroxine Sodium [Synthroid] 175 mcg PO SUSA@0600 11/21/17 Meloxicam [Mobic] 15 mg PO DAILY 11/21/17 Metformin HCl [Metformin HCl ER] 1,000 mg PO QPM 11/21/17 Metoprolol Tartrate [Lopressor 25 mg Tablet] 12.5 mg PO Q12 11/21/17 Montelukast Sodium [Singulair 10 mg Tablet] 10 mg PO QPM 11/21/17 Omeprazole 40 mg PO DAILY 11/21/17 Zolpidem Tartrate [Ambien] 10 mg PO QHS 11/21/17 Allergies/Adverse Reactions: ceftriaxone sodium [From Rocephin] Allergy (Severe, Verified 12/04/16 12:24) tongue swelling,DIFFICULTY BREATHING sulfamethoxazole [From Bactrim] Allergy (Severe, Verified 12/04/16 12:24) rash trimethoprim [From Bactrim] Allergy (Severe, Verified 12/04/16 12:24) rash Cephalosporins Allergy (Unknown, Verified 12/04/16 12:24) ? Review of Systems Constitutional: PRESENT: other - no fever/chills Eyes: PRESENT: other - no visual/hearing changes Respiratory: PRESENT: other - no cough/chest pains Gastrointestinal: PRESENT: abdominal pain, nausea, vomiting Genitourinary: PRESENT: other - no dysuria Hematologic/Lymphatic: PRESENT: other - no easy bruising Physical Exam Vital Signs: Temp Pulse Resp BP Pulse Ox 99.2 F 80 20 138/59 H 95 11/21/17 15:44 11/21/17 15:44 11/21/17 15:44 11/21/17 15:44 11/21/17 15:44 Intake & Output 11/20/17 11/21/17 11/22/17 06:59 06:59 06:59 Weight 71 kg General appearance: PRESENT: no acute distress Head exam: PRESENT: atraumatic Eye exam: PRESENT: conjunctiva pink Mouth exam: PRESENT: moist Neck exam: PRESENT: full ROM Respiratory exam: PRESENT: clear to auscultation joanne Cardiovascular exam: PRESENT: RRR Pulses: PRESENT: normal radial pulses Vascular exam: PRESENT: normal capillary refill GI/Abdominal exam: PRESENT: soft - non tender Rectal exam: PRESENT: deferred Extremities exam: PRESENT: full ROM Musculoskeletal exam: PRESENT: ambulatory Neurological exam: PRESENT: alert, oriented to person, oriented to place, oriented to time, oriented to situation Psychiatric exam: PRESENT: appropriate affect Skin exam: PRESENT: normal color, warm Results Impressions: Abdomen/Pelvis CT 11/20/17 23:58 IMPRESSION: 1. Redemonstrated dilated loops of distal small bowel without definite finding transition point identified. Administered oral contrast does not proceed throughout the entire length of the small bowel. Contrast is not visualized proceeding to the ileocecal valve into the colon. These findings could be seen with ileus or partial obstruction at the level of the ileocecal valve. 2. Scattered diverticula of the colon. This exam was performed according to our departmental dose-optimization program, which includes automated exposure control, adjustment of the mA and/or kV according to patient size and/or use of iterative reconstruction technique. Chest X-Ray 11/21/17 00:00 IMPRESSION: Nasogastric tube tip and side port in the stomach Assessment & Plan - Plan Summary Plan Summary: Partial bowel obstruction appears resolved D/C NGT Keep NPO tonight Start clears in am
[2017-11-22] MEDS: KETOROLAC TROMETHAMINE INJ/PF 30 MG/1 ML SDV IV PRN ×3 (02:05→20:00)
[2017-11-22 05:25] LABS: ABSOLUTE EOSINOPHILS # (AUTO) 0.3 10^3/uL (0.0-0.6); ABSOLUTE LYMPHOCYTES (AUTO) 2.2 10^3/uL (0.5-4.7); ABSOLUTE MONOCYTES (AUTO) 0.5 10^3/uL (0.1-1.4); ABSOLUTE NEUT (AUTO) 2.8 10^3/uL (1.7-8.2); BASOPHILS % (AUTO) 0.6 % (0-2); EOSINOPHILS % (AUTO) 4.8 % (0-6); HEMATOCRIT 31.3 % (36.0-47.0); LYMPHOCYTES % (AUTO) 37.9 % (13-45); MEAN CORPUSCULAR HEMOGLOBIN 31.5 pg (27.0-33.4); MEAN CORPUSCULAR HGB CONC 34.3 g/dL (32.0-36.0); MEAN CORPUSCULAR VOLUME 92 fl (80-97); MONOCYTES % (AUTO) 8.9 % (3-13); PLATELET COUNT 195 10^3/uL (150-450); RED CELL DISTRIBUTION WIDTH 13.7 % (11.5-14.0); SEGMENTED NEUTROPHILS % (AUTO) 47.8 % (42-78); TOTAL CELLS COUNTED % (AUTO) 100 %; WHITE BLOOD COUNT 5.9 10^3/uL (4.0-10.5)
[2017-11-22 05:34] LABS: ALANINE AMINOTRANSFERASE 16 U/L (9-52); ALBUMIN 2.7 g/dL (3.5-5.0); ALKALINE PHOSPHATASE 70 U/L (38-126); ANION GAP 9 (5-19); ASPARTATE AMINO TRANSFERASE 26 U/L (14-36); BILIRUBIN,DIRECT 0.2 mg/dL (0.0-0.4); BILIRUBIN,TOTAL 0.2 mg/dL (0.2-1.3); BLOOD UREA NITROGEN 12 mg/dL (7-20); CALCIUM 8.3 mg/dL (8.4-10.2); CARBON DIOXIDE 24 mmol/L (22-30); CHLORIDE 115 mmol/L (98-107); GLUCOSE 107 mg/dL (75-110); POTASSIUM 3.8 mmol/L (3.6-5.0); SODIUM 148.3 mmol/L (137-145); TOTAL PROTEIN 5.3 g/dL (6.3-8.2)
[2017-11-22 05:35] LABS: HEMOGLOBIN 10.7 g/dL (12.0-15.5)
[2017-11-22] MEDS: HEPARIN SOD (PORCINE) 5,000 UNIT/ML 1 ML SYRINGE SUBCUT SCH ×3 (06:15→21:53)
[2017-11-22] MEDS: NORMAL SALINE 1000 ML 1,000 ML IV PRN (10:13)
[2017-11-22] MEDS: ASPIRIN 81 MG TABLET, CHEWABLE PO SCH (10:14)
--- NOTE | 2017-11-22 11:17 | PDOC PROGRESS REPORT ---
Subjective Progress Note for:: 11/22/17 Subjective:: She is a 62 years old female patient admitted yesterday for nausea vomiting and abdominal pain secondary to partial small bowel obstruction. Patient has been managed with n.p.o. and NG tube was inserted. This morning patient able to pass flatus and move her bowels. Dr. Porter evaluated the patient and he discontinued the NG tube and started on clear liquid diet. Her nausea vomiting and abdominal pain subsided. I will advance her diet if she tolerates well patient is a potential discharge. Reason For Visit: PSBO, DM, HTN, PAIN Physical Exam Vital Signs: Temp Pulse Resp BP Pulse Ox 98.5 F 80 16 131/61 H 96 11/22/17 07:51 11/22/17 08:17 11/22/17 08:17 11/22/17 07:51 11/22/17 08:17 Intake & Output 11/21/17 11/22/17 11/23/17 06:59 06:59 06:59 Intake Total 1500 Balance 1500 Weight 86.3 kg General appearance: PRESENT: no acute distress, well-developed, well-nourished Eye exam: PRESENT: conjunctiva pink Mouth exam: PRESENT: moist Neck exam: ABSENT: carotid bruit, JVD, lymphadenopathy, thyromegaly Respiratory exam: PRESENT: clear to auscultation joanne. ABSENT: rales, rhonchi, wheezes Cardiovascular exam: PRESENT: RRR. ABSENT: diastolic murmur, rubs, systolic murmur GI/Abdominal exam: PRESENT: normal bowel sounds, soft. ABSENT: distended, guarding, mass, organolmegaly, rebound, tenderness Extremities exam: PRESENT: full ROM. ABSENT: calf tenderness, clubbing, pedal edema Neurological exam: PRESENT: alert, awake, oriented to time, oriented to situation Psychiatric exam: PRESENT: normal mood Results Laboratory Results: 11/22/17 04:23 11/22/17 04:23 11/22/17 11/22/17 04:23 04:23 WBC 5.9 RBC 3.40 L Hgb 10.7 L D Hct 31.3 L MCV 92 MCH 31.5 MCHC 34.3 RDW 13.7 Plt Count 195 Seg Neutrophils % 47.8 Lymphocytes % 37.9 Monocytes % 8.9 Eosinophils % 4.8 Basophils % 0.6 Absolute Neutrophils 2.8 Absolute Lymphocytes 2.2 Absolute Monocytes 0.5 Absolute Eosinophils 0.3 Absolute Basophils 0.0 Sodium 148.3 H Potassium 3.8 Chloride 115 H Carbon Dioxide 24 Anion Gap 9 BUN 12 Creatinine 0.67 Est GFR ( Amer) > 60 Est GFR (Non-Af Amer) > 60 Glucose 107 Calcium 8.3 L Total Bilirubin 0.2 AST 26 ALT 16 Alkaline Phosphatase 70 Total Protein 5.3 L Albumin 2.7 L Impressions: Abdomen/Pelvis CT 11/20/17 23:58 IMPRESSION: 1. Redemonstrated dilated loops of distal small bowel without definite finding transition point identified. Administered oral contrast does not proceed throughout the entire length of the small bowel. Contrast is not visualized proceeding to the ileocecal valve into the colon. These findings could be seen with ileus or partial obstruction at the level of the ileocecal valve. 2. Scattered diverticula of the colon. This exam was performed according to our departmental dose-optimization program, which includes automated exposure control, adjustment of the mA and/or kV according to patient size and/or use of iterative reconstruction technique. Chest X-Ray 11/21/17 00:00 IMPRESSION: Nasogastric tube tip and side port in the stomach Assessment & Plan - Diagnosis (1) Partial small bowel obstruction Is this a current diagnosis for this admission?: Yes Plan: Has resolved. NG tube discontinued and patient started on clear liquid diet. (2) Hypertension Qualifiers: Hypertension type: essential hypertension Qualified Code(s): I10 - Essential (primary) hypertension Is this a current diagnosis for this admission?: Yes Plan: Continue home medications. (3) Type 2 diabetes mellitus Is this a current diagnosis for this admission?: Yes Plan: DC D5 with normal saline and switch her to normal saline - Time Time Spent with patient: 25-34 minutes
--- NOTE | 2017-11-22 16:06 | PDOC PROGRESS REPORT ---
Subjective Progress Note for:: 11/22/17 Subjective:: comfortable. No pains Reason For Visit: PSBO, DM, HTN, PAIN Physical Exam Vital Signs: Temp Pulse Resp BP Pulse Ox 98.8 F 53 L 18 134/50 H 96 11/22/17 11:13 11/22/17 11:13 11/22/17 11:13 11/22/17 11:13 11/22/17 11:13 Intake & Output 11/21/17 11/22/17 11/23/17 06:59 06:59 06:59 Intake Total 1500 Balance 1500 Weight 86.3 kg Exam: abd is soft and non tender Results Laboratory Results: 11/22/17 04:23 11/22/17 04:23 11/22/17 11/22/17 04:23 04:23 WBC 5.9 RBC 3.40 L Hgb 10.7 L D Hct 31.3 L MCV 92 MCH 31.5 MCHC 34.3 RDW 13.7 Plt Count 195 Seg Neutrophils % 47.8 Lymphocytes % 37.9 Monocytes % 8.9 Eosinophils % 4.8 Basophils % 0.6 Absolute Neutrophils 2.8 Absolute Lymphocytes 2.2 Absolute Monocytes 0.5 Absolute Eosinophils 0.3 Absolute Basophils 0.0 Sodium 148.3 H Potassium 3.8 Chloride 115 H Carbon Dioxide 24 Anion Gap 9 BUN 12 Creatinine 0.67 Est GFR ( Amer) > 60 Est GFR (Non-Af Amer) > 60 Glucose 107 Calcium 8.3 L Total Bilirubin 0.2 AST 26 ALT 16 Alkaline Phosphatase 70 Total Protein 5.3 L Albumin 2.7 L Impressions: Abdomen/Pelvis CT 11/20/17 23:58 IMPRESSION: 1. Redemonstrated dilated loops of distal small bowel without definite finding transition point identified. Administered oral contrast does not proceed throughout the entire length of the small bowel. Contrast is not visualized proceeding to the ileocecal valve into the colon. These findings could be seen with ileus or partial obstruction at the level of the ileocecal valve. 2. Scattered diverticula of the colon. This exam was performed according to our departmental dose-optimization program, which includes automated exposure control, adjustment of the mA and/or kV according to patient size and/or use of iterative reconstruction technique. Chest X-Ray 11/21/17 00:00 IMPRESSION: Nasogastric tube tip and side port in the stomach Assessment & Plan - Time Time Spent with patient: 15-24 minutes - Plan Summary Plan Summary: Tolerated off NGT Has flatus today Start clear liquids and advance as tolerated
[2017-11-22] MEDS ORDERED: METOPROLOL TARTRATE 25 MG TABLET PO ONE (23:00)
[2017-11-22] MEDS ORDERED: ZOLPIDEM TARTRATE 5 MG TABLET PO ONE (23:00)
[2017-11-23] MEDS: HEPARIN SOD (PORCINE) 5,000 UNIT/ML 1 ML SYRINGE SUBCUT SCH ×3 (06:11→21:23)
[2017-11-23] MEDS: NORMAL SALINE 1000 ML 1,000 ML IV PRN ×2 (06:11→13:54)
[2017-11-23 07:24] LABS: ABSOLUTE EOSINOPHILS # (AUTO) 0.2 10^3/uL (0.0-0.6); ABSOLUTE LYMPHOCYTES (AUTO) 2.4 10^3/uL (0.5-4.7); ABSOLUTE MONOCYTES (AUTO) 0.5 10^3/uL (0.1-1.4); ABSOLUTE NEUT (AUTO) 2.2 10^3/uL (1.7-8.2); BASOPHILS % (AUTO) 0.8 % (0-2); EOSINOPHILS % (AUTO) 4.3 % (0-6); HEMOGLOBIN 10.3 g/dL (12.0-15.5); LYMPHOCYTES % (AUTO) 44.3 % (13-45); MEAN CORPUSCULAR HEMOGLOBIN 31.3 pg (27.0-33.4); MEAN CORPUSCULAR HGB CONC 34.4 g/dL (32.0-36.0); MEAN CORPUSCULAR VOLUME 91 fl (80-97); MONOCYTES % (AUTO) 8.8 % (3-13); PLATELET COUNT 175 10^3/uL (150-450); RED CELL DISTRIBUTION WIDTH 13.4 % (11.5-14.0); SEGMENTED NEUTROPHILS % (AUTO) 41.8 % (42-78); TOTAL CELLS COUNTED % (AUTO) 100 %; WHITE BLOOD COUNT 5.3 10^3/uL (4.0-10.5)
[2017-11-23] MEDS: ASPIRIN 81 MG TABLET, CHEWABLE PO SCH (09:16)
--- NOTE | 2017-11-23 13:41 | PDOC PROGRESS REPORT ---
Subjective Subjective:: This is a 62 years old female patient admitted for small bowel partial obstruction. Yesterday patient moved her bowels and started on clear liquid diet. Patient tolerates a liquid diet and today I will advance her diet to solid regular and if she tolerates well she is potential discharge for tomorrow. Patient does not complain any nausea vomiting abdominal pain or distention. Reason For Visit: PSBO, DM, HTN, PAIN Physical Exam Vital Signs: Temp Pulse Resp BP Pulse Ox 98.6 F 48 L 17 124/44 L 97 11/23/17 11:26 11/23/17 11:26 11/23/17 11:26 11/23/17 11:26 11/23/17 11:26 Intake & Output 11/22/17 11/23/17 11/24/17 06:59 06:59 06:59 Intake Total 1500 4940 Balance 1500 4940 Weight 86.3 kg 89.3 kg Results Laboratory Results: 11/23/17 06:44 11/22/17 04:23 11/23/17 06:44 WBC 5.3 RBC 3.30 L Hgb 10.3 L Hct 30.0 L MCV 91 MCH 31.3 MCHC 34.4 RDW 13.4 Plt Count 175 Seg Neutrophils % 41.8 L Lymphocytes % 44.3 Monocytes % 8.8 Eosinophils % 4.3 Basophils % 0.8 Absolute Neutrophils 2.2 Absolute Lymphocytes 2.4 Absolute Monocytes 0.5 Absolute Eosinophils 0.2 Absolute Basophils 0.0 Impressions: Abdomen/Pelvis CT 11/20/17 23:58 IMPRESSION: 1. Redemonstrated dilated loops of distal small bowel without definite finding transition point identified. Administered oral contrast does not proceed throughout the entire length of the small bowel. Contrast is not visualized proceeding to the ileocecal valve into the colon. These findings could be seen with ileus or partial obstruction at the level of the ileocecal valve. 2. Scattered diverticula of the colon. This exam was performed according to our departmental dose-optimization program, which includes automated exposure control, adjustment of the mA and/or kV according to patient size and/or use of iterative reconstruction technique. Chest X-Ray 11/21/17 00:00 IMPRESSION: Nasogastric tube tip and side port in the stomach Assessment & Plan - Diagnosis (1) Partial small bowel obstruction Is this a current diagnosis for this admission?: Yes Plan: Has resolved. Patient transitioned to regular solid diet. (2) Hypertension Qualifiers: Hypertension type: essential hypertension Qualified Code(s): I10 - Essential (primary) hypertension Is this a current diagnosis for this admission?: Yes Plan: Continue home medications. (3) Type 2 diabetes mellitus Is this a current diagnosis for this admission?: Yes Plan: DC D5 with normal saline and switch her to normal saline
[2017-11-23] MEDS: KETOROLAC TROMETHAMINE INJ/PF 30 MG/1 ML SDV IV PRN (21:31)
--- NOTE | 2017-11-23 21:50 | PDOC PROGRESS REPORT ---
Subjective Progress Note for:: 11/23/17 Subjective:: comfortable. No pains Reason For Visit: PSBO, DM, HTN, PAIN Physical Exam Vital Signs: Temp Pulse Resp BP Pulse Ox 99.0 F 57 L 24 H 138/63 H 95 11/23/17 19:41 11/23/17 19:41 11/23/17 19:41 11/23/17 19:41 11/23/17 19:41 Intake & Output 11/22/17 11/23/17 11/24/17 06:59 06:59 06:59 Intake Total 1500 4940 2487 Balance 1500 4940 2487 Weight 86.3 kg 89.3 kg Exam: abd soft and non tender Results Laboratory Results: 11/23/17 06:44 11/22/17 04:23 11/23/17 06:44 WBC 5.3 RBC 3.30 L Hgb 10.3 L Hct 30.0 L MCV 91 MCH 31.3 MCHC 34.4 RDW 13.4 Plt Count 175 Seg Neutrophils % 41.8 L Lymphocytes % 44.3 Monocytes % 8.8 Eosinophils % 4.3 Basophils % 0.8 Absolute Neutrophils 2.2 Absolute Lymphocytes 2.4 Absolute Monocytes 0.5 Absolute Eosinophils 0.2 Absolute Basophils 0.0 Impressions: Abdomen/Pelvis CT 11/20/17 23:58 IMPRESSION: 1. Redemonstrated dilated loops of distal small bowel without definite finding transition point identified. Administered oral contrast does not proceed throughout the entire length of the small bowel. Contrast is not visualized proceeding to the ileocecal valve into the colon. These findings could be seen with ileus or partial obstruction at the level of the ileocecal valve. 2. Scattered diverticula of the colon. This exam was performed according to our departmental dose-optimization program, which includes automated exposure control, adjustment of the mA and/or kV according to patient size and/or use of iterative reconstruction technique. Chest X-Ray 11/21/17 00:00 IMPRESSION: Nasogastric tube tip and side port in the stomach Assessment & Plan - Time Time Spent with patient: 15-24 minutes - Plan Summary Plan Summary: Tolerated some soft diet OK to discharge tomorrow Follow up with PMD Follow up with her surgeon at [place] for her lap hernia repair
[2017-11-23] MEDS ORDERED: ZOLPIDEM TARTRATE 5 MG TABLET PO ONE (22:00)
[2017-11-24] MEDS: HEPARIN SOD (PORCINE) 5,000 UNIT/ML 1 ML SYRINGE SUBCUT SCH (05:14)
[2017-11-24 05:44] LABS: ABSOLUTE EOSINOPHILS # (AUTO) 0.2 10^3/uL (0.0-0.6); ABSOLUTE LYMPHOCYTES (AUTO) 2.4 10^3/uL (0.5-4.7); ABSOLUTE MONOCYTES (AUTO) 0.5 10^3/uL (0.1-1.4); ABSOLUTE NEUT (AUTO) 2.9 10^3/uL (1.7-8.2); BASOPHILS % (AUTO) 0.6 % (0-2); EOSINOPHILS % (AUTO) 2.6 % (0-6); HEMATOCRIT 29.4 % (36.0-47.0); HEMOGLOBIN 10.2 g/dL (12.0-15.5); LYMPHOCYTES % (AUTO) 39.8 % (13-45); MEAN CORPUSCULAR HEMOGLOBIN 31.4 pg (27.0-33.4); MEAN CORPUSCULAR HGB CONC 34.6 g/dL (32.0-36.0); MEAN CORPUSCULAR VOLUME 91 fl (80-97); MONOCYTES % (AUTO) 8.9 % (3-13); PLATELET COUNT 183 10^3/uL (150-450); RED BLOOD COUNT 3.24 10^6/uL (3.72-5.28); RED CELL DISTRIBUTION WIDTH 13.3 % (11.5-14.0); SEGMENTED NEUTROPHILS % (AUTO) 48.1 % (42-78); TOTAL CELLS COUNTED % (AUTO) 100 %; WHITE BLOOD COUNT 5.9 10^3/uL (4.0-10.5)
[2017-11-24] MEDS: KETOROLAC TROMETHAMINE INJ/PF 30 MG/1 ML SDV IV PRN (06:48)
--- NOTE | 2017-11-24 09:04 | PDOC DISCHARGE SUMMARY ---
General - Admit/Disc Date/PCP Admission Date/Primary Care Provider: 11/21/17 05:02 JAXON MCCORMICK MD Discharge Date: 11/24/17 - Discharge Diagnosis (1) Partial small bowel obstruction Is this a current diagnosis for this admission?: Yes (2) Hypertension Is this a current diagnosis for this admission?: Yes (3) Type 2 diabetes mellitus Is this a current diagnosis for this admission?: Yes - Additional Information Resuscitation Status: Full Code Home Medications: Aspirin [Aspirin EC] 81 mg PO DAILY 11/21/17 Atorvastatin Calcium [Lipitor 80 mg Tablet] 80 mg PO QHS 11/21/17 Bupropion HCl [Wellbutrin Xl 300mg 24hr Tablet] 300 mg PO QHS 11/21/17 Buspirone HCl [Buspar 15 mg Tablet] 15 mg PO TID 11/21/17 Cholecalciferol (Vitamin D3) [Vitamin D3 1000 Unit Tablet] 1,000 unit PO DAILY 11/21/17 Docusate Sodium [Colace 100 mg Capsule] 100 mg PO BID 11/21/17 Fluoxetine HCl [Prozac] 40 mg PO DAILY 11/21/17 Fluticasone Propionate [Flonase Nasal [place] 50 Mcg/[place] 16 gm] 1 spray NASL DAILY 11/21/17 Furosemide [Lasix 40 mg Tablet] 40 mg PO DAILY 11/21/17 Gabapentin [Neurontin 100 mg Capsule] 100 mg PO QHS 11/21/17 Insulin Glargine,Hum.rec.anlog [Toujeo Solostar] 70 units SQ QHS 11/21/17 Levothyroxine Sodium [Synthroid] 150 mg PO MOTUWETHFR@0600 11/21/17 Levothyroxine Sodium [Synthroid] 175 mcg PO SUSA@0600 11/21/17 Meloxicam [Mobic] 15 mg PO DAILY 11/21/17 Metformin HCl [Metformin HCl ER] 1,000 mg PO QPM 11/21/17 Metoprolol Tartrate [Lopressor 25 mg Tablet] 12.5 mg PO Q12 11/21/17 Montelukast Sodium [Singulair 10 mg Tablet] 10 mg PO QPM 11/21/17 Omeprazole 40 mg PO DAILY 11/21/17 Zolpidem Tartrate [Ambien] 10 mg PO QHS 11/21/17 History of Present Illness History of Present Illness: ESTRADA TORRES is a 62 year old female with a past medical history of diabetes, depression, hypertension, dyslipidemia and chronic pain. She presents 18 hours following the abrupt onset of abdominal pain with vomiting of gastric content. Pain, shortness of breath or diaphoresis. She denies previous episode, constipation and otherwise feels well. In the emergency room she has a CT abdomen with contrast showing ileus versus small bowel obstruction. History includes multiple pelvic and abdominal surgeries, gastric bypass, cholecystectomy and section 3. Following contrast administration she has several episodes of loose stool but persistent abdominal pain, NG tube was placed and she is referred to the hospitalist for admission. Hospital Course Hospital Course: This is 62 years old female patient admitted for abdominal pain and nausea and vomiting secondary to partial small bowel obstruction which is evidenced on CT scan of the abdomen and pelvis. Patient has been managed by keeping her n.p.o., IV hydration and NG tube suction. On the third day of admission patient's able to pass flatus and move her bowel. Dr. Blas the surgeon has been involved in the management of this patient and he does continue to NG tube and started her on clear liquid diet. Yesterday advancing her diet to solid regular and she is able to tolerate well. This morning I seen patient resting in bed comfortably she is not in pain or any form of distress. Vitals are within normal limits. Patient is clinically stable enough to be discharged today. She is advised her to be followed up by her primary care physician in 1 week. Physical Exam Vital Signs: Temp Pulse Resp BP Pulse Ox 98.7 F 65 16 136/71 H 94 11/24/17 03:18 11/24/17 07:00 11/24/17 03:18 11/24/17 03:18 11/24/17 03:18 Intake & Output 11/23/17 11/24/17 11/25/17 06:59 06:59 06:59 Intake Total 4940 3142 Balance 4940 3142 Weight 89.3 kg 84.4 kg General appearance: PRESENT: no acute distress Head exam: PRESENT: atraumatic Eye exam: PRESENT: conjunctiva pink Mouth exam: PRESENT: moist Neck exam: ABSENT: carotid bruit, JVD, lymphadenopathy, thyromegaly Respiratory exam: PRESENT: clear to auscultation joanne. ABSENT: rales, rhonchi, wheezes Cardiovascular exam: PRESENT: RRR. ABSENT: diastolic murmur, rubs, systolic murmur GI/Abdominal exam: PRESENT: normal bowel sounds, soft. ABSENT: distended, guarding, mass, organolmegaly, rebound, tenderness Neurological exam: PRESENT: alert, awake, oriented to time, oriented to situation Psychiatric exam: PRESENT: appropriate affect, normal mood. ABSENT: homicidal ideation, suicidal ideation Results Laboratory Results: 11/24/17 04:21 11/22/17 04:23 11/24/17 04:21 WBC 5.9 RBC 3.24 L Hgb 10.2 L Hct 29.4 L MCV 91 MCH 31.4 MCHC 34.6 RDW 13.3 Plt Count 183 Seg Neutrophils % 48.1 Lymphocytes % 39.8 Monocytes % 8.9 Eosinophils % 2.6 Basophils % 0.6 Absolute Neutrophils 2.9 Absolute Lymphocytes 2.4 Absolute Monocytes 0.5 Absolute Eosinophils 0.2 Absolute Basophils 0.0 Impressions: Abdomen/Pelvis CT 11/20/17 23:58 IMPRESSION: 1. Redemonstrated dilated loops of distal small bowel without definite finding transition point identified. Administered oral contrast does not proceed throughout the entire length of the small bowel. Contrast is not visualized proceeding to the ileocecal valve into the colon. These findings could be seen with ileus or partial obstruction at the level of the ileocecal valve. 2. Scattered diverticula of the colon. This exam was performed according to our departmental dose-optimization program, which includes automated exposure control, adjustment of the mA and/or kV according to patient size and/or use of iterative reconstruction technique. Chest X-Ray 11/21/17 00:00 IMPRESSION: Nasogastric tube tip and side port in the stomach Qualifiers - * PATIENT BEING DISCHARGED WITH ANY OF THE FOLLOWING DIAGNOSIS: No
[2017-11-24] MEDS: ASPIRIN 81 MG TABLET, CHEWABLE PO SCH (09:44)
[2017-11-24 10:53] VITALS: BP 143/66
== END 2017-11-24 12:45 | disposition home or self-care (01) | DRG 390 ==
LOC: ER 19:17 → OBSVTOIN 11-21 05:02 → EH 11-21 05:02 → 5 11-21 08:00
PROVIDERS: ADMIT Internal Medicine; ATTEND Internal Medicine
DX: K56.600 Partial intestinal obstruction, unspecified as to cause (principal); I10 Essential (primary) hypertension; E11.8 Type 2 diabetes mellitus with unspecified complications; D64.9 Anemia, unspecified; K21.9 Gastro-esophageal reflux disease without esophagitis; K44.9 Diaphragmatic hernia without obstruction or gangrene; E03.9 Hypothyroidism, unspecified; E78.00 Pure hypercholesterolemia, unspecified; I25.10 Atherosclerotic heart disease of native coronary artery without angina pectoris; J40 Bronchitis, not specified as acute or chronic; F41.8 Other specified anxiety disorders; Z98.84 Bariatric surgery status; Z79.01 Long term (current) use of anticoagulants; Z79.4 Long term (current) use of insulin; Z79.899 Other long term (current) drug therapy
CPT/HCPCS: 36415; 71045; 74176; 74177; 80053; 81001; 82272; 82962; 83690; 83735; 84100; 85025; 96361; 96372; 96374; 96375; 96376; 99285; J1644; J1815; J1885; J2250; J2270; J2550; J7030; S0119

== ENCOUNTER → 2017-12-20 | Outpatient (CLI) | payer MEDICARE ==
[2017-12-20 11:16] LABS: ALANINE AMINOTRANSFERASE 24 U/L (9-52); CHOLESTEROL 161.33 mg/dL (0-200); TRIGLYCERIDES 122 mg/dL (<150)
[2017-12-20 11:27] LABS: DIRECT LDL 81 mg/dL (<100)
== END ==
LOC: OD 09:27
PROVIDERS: ATTEND Family Medicine Geriatric Medicine
DX: E78.5 Hyperlipidemia, unspecified (principal); E03.9 Hypothyroidism, unspecified
CPT/HCPCS: 36415; 80061; 84443; 84460

== ENCOUNTER → 2018-02-08 | Outpatient (CLI) | payer MEDICARE | LOC: OD 09:45 | PROVIDERS: ATTEND Internal Medicine | DX: E03.9 Hypothyroidism, unspecified (principal) | CPT/HCPCS: 36415; 84443 ==

== ENCOUNTER → 2018-03-08 | Outpatient (CLI) | payer MEDICARE ==
[2018-03-08 10:40] LABS: CHOLESTEROL 157.49 mg/dL (0-200); TRIGLYCERIDES 110 mg/dL (<150)
[2018-03-08 10:55] LABS: DIRECT LDL 95 mg/dL (<100)
== END ==
LOC: OD 09:17
PROVIDERS: ATTEND Internal Medicine
DX: E11.9 Type 2 diabetes mellitus without complications (principal); E03.9 Hypothyroidism, unspecified; E78.5 Hyperlipidemia, unspecified
CPT/HCPCS: 36415; 80061; 83036; 84443

== ENCOUNTER → 2018-03-21 | Outpatient (CLI) | payer MEDICARE ==
--- NOTE | 2018-03-21 11:54 | WOMENS IMAGING REPORT ---
EXAM DESCRIPTION: BILAT SCREENING MAMMO W/CAD COMPLETED DATE/TIME: 03/21/2018 10:30 am REASON FOR STUDY: SCREENING MAMMO Z12.31 ENCNTR SCREEN MAMMOGRAM FOR MALIGNANT NEOPLASM OF GURPREET COMPARISON: 2016 TECHNIQUE: Standard craniocaudal and mediolateral oblique views of each breast recorded using digita l acquisition. LIMITATIONS: None. FINDINGS: No masses, calcifications or architectural distortion. No areas of suspicion. Read with the assistance of CAD. .[facility] - R2 [employer] Version 1.3 .[facility] Imaging - R2 Cenova Version 1.3 .[facility] - R2 Cenova Version 2.4 .[facility] [place] - R2 Cenova Version 2.4 .[facility] - R2 Senior Solutions Architect Version 9.2 IMPRESSION: NORMAL MAMMOGRAM. BIRADS 1. BREAST DENSITY: b. There are scattered areas of fibroglandular density. BIRAD: 1 NEGATIVE RECOMMENDATION: ROUTINE SCREENING Please continue yearly bilateral screening mammography/tomosynthesis in March 2019 COMMENT: The patient has been notified of the results by letter per SA requirements. Additional no tification policies are in place for contacting patient with suspicious or incomplete findings. Quality ID #[id number]: The [employer] recommends an annual screening mammogram for women aged 40 years or over. This facility utilizes a reminder system to ensure that all patients receive reminder letters, and/or direct phone calls for appointments. This includes reminders for routine scr eening mammograms, diagnostic mammograms, or other Breast Imaging Interventions when appropriate. Th is patient will be placed in the appropriate reminder system. The [employer] (ACR) has developed recommendations for screening MRI of the breast s in certain patient populations, to be used in conjunction with mammography. Breast MRI surveillanc e may be appropriate for women with more than 20% lifetime risk of developing breast cancer as deter mined by genetic testing, significant family history of the disease, or history of mantle radiation f or Hodgkins Disease. ACR Practice Guidelines 2008. TECHNICAL DOCUMENTATION: FINDING NUMBER: (1) ASSESSMENT: (1) JOB ID: [id number] [employer]- All Rights Reserved Reading location - IP/workstation name: [facility]
== END ==
LOC: WI 09:51
PROVIDERS: ATTEND Internal Medicine
DX: Z12.31 Encounter for screening mammogram for malignant neoplasm of breast (principal)
CPT/HCPCS: 77067

== ENCOUNTER → 2018-04-03 | Outpatient (CLI) | payer MEDICARE | LOC: OD 10:14 | PROVIDERS: ATTEND Internal Medicine | DX: E03.9 Hypothyroidism, unspecified (principal) | CPT/HCPCS: 36415; 84443 ==

== ENCOUNTER → 2018-04-17 | Outpatient (CLI) | payer MEDICARE ==
--- NOTE | 2018-04-17 12:43 | RADIOLOGY REPORT (SQ) ---
EXAM DESCRIPTION: C SP 4 OR 5 VIEWS COMPLETED DATE/TIME: 04/17/2018 11:43 am REASON FOR STUDY: CERVICAL DJD M17.9 OSTEOARTHRITIS OF KNEE, UNSPECIFIED COMPARISON: None. NUMBER OF VIEWS: Five views. TECHNIQUE: AP, lateral, obliques and odontoid radiographic images acquired of the cervical spine. LIMITATIONS: None. FINDINGS: MINERALIZATION: Osteoporotic ALIGNMENT: Anatomic. VERTEBRAE: Vertebral bodies of normal height. DISCS: Post fusion at C6-7 with bone graft material and anterior fixation plates with anchoring screw s at C6 and C7. FORAMINA: Mild bilateral foraminal narrowing at C2-3 and C3-4 LATERAL AND POSTERIOR ELEMENTS: Facets, lateral masses and spinous processes without significant find ings. HARDWARE: None in the spine. SOFT TISSUES: No masses or calcifications. Lung apices clear. OTHER: Left carotid bifurcation calcification IMPRESSION: Mild bilateral foraminal narrowing at C2-3 and C3-4 Old fusion of C6-7 Left carotid bifurcation calcification TECHNICAL DOCUMENTATION: JOB ID: [id number] [employer]- All Rights Reserved Reading location - IP/workstation name: [email or web address]
== END ==
LOC: OD 10:25
PROVIDERS: ATTEND Internal Medicine
DX: M50.31 Other cervical disc degeneration, high cervical region (principal); M48.02 Spinal stenosis, cervical region
CPT/HCPCS: 72050

== ENCOUNTER → 2018-05-18 | Outpatient (CLI) | payer MEDICARE ==
--- NOTE | 2018-05-18 15:55 | RADIOLOGY REPORT (SQ) ---
EXAM DESCRIPTION: MRI LUMBAR SPINE WITHOUT COMPLETED DATE/TIME: 05/18/2018 3:32 pm REASON FOR STUDY: M54.16 RADICULOPATHY, LUMBAR REGION M54.16 RADICULOPATHY, LUMBAR REGION COMPARISON: None. TECHNIQUE: Sagittal and Axial imaging includes T1, T2, STIR and gradient echo sequences. Coronal T2/ HASTE imaging. LIMITATIONS: Motion. FINDINGS: VISUALIZED UPPER ABDOMEN: Limited evaluation. No acute or suspicious findings suggested. SEGMENTATION: No transitional anatomy. The lowest well-developed disc space is labeled L5-S1. ALIGNMENT: Grade 1 spondylolisthesis L4-5. VERTEBRAE: Old compression fracture T12. BONE MARROW: Normal. No marrow replacement or reactive changes. DISC SIGNAL: Desiccation multiple levels. POSTERIOR ELEMENTS: Generally intact. No pars defect evident. HARDWARE: None in the spine. CORD AND CONUS: Normal in size and signal intensity. Conus at the appropriate level. SOFT TISSUES: No aortic aneurysm seen. No bulky retroperitoneal adenopathy or mass. No paraspinal mas s or fluid. L1-L2: No significant spinal stenosis or exit foraminal stenosis. L2-L3: Disc bulge and facet arthropathy. No significant stenosis. L3-L4: Disc bulge and facet arthropathy. No significant stenosis. L4-L5: Marked spinal stenosis due to posterior right synovial cyst, malalignment and facet arthropath y. Mild neural foraminal narrowing bilaterally. L5-S1: Disc bulge and facet arthropathy. Mild spinal stenosis. LOWER THORACIC: Incompletely imaged. No stenosis seen. SACRUM: Visualized upper sacrum intact. OTHER: No other significant findings. IMPRESSION: Marked spinal stenosis L4-5. TECHNICAL DOCUMENTATION: JOB ID: [id number]- All Rights Reserved Reading location - IP/workstation name: [facility]
== END ==
LOC: RAD 16:07
PROVIDERS: ATTEND Orthopaedic Surgery
DX: M54.16 Radiculopathy, lumbar region (principal); M48.061 Spinal stenosis, lumbar region without neurogenic claudication
CPT/HCPCS: 72148

== ENCOUNTER → 2018-06-12 | Outpatient (CLI) | payer MEDICARE | LOC: OD 08:29 | PROVIDERS: ATTEND Internal Medicine | DX: E03.9 Hypothyroidism, unspecified (principal) | CPT/HCPCS: 36415; 84443 ==

== ENCOUNTER → 2018-07-17 | Outpatient (CLI) | payer MEDICARE | LOC: OD 08:02 | PROVIDERS: ATTEND Internal Medicine | DX: E03.9 Hypothyroidism, unspecified (principal) | CPT/HCPCS: 36415; 84443 ==

== ENCOUNTER → 2018-08-22 | Outpatient (CLI) | payer MEDICARE ==
[2018-08-22 09:21] LABS: CHOLESTEROL 161.74 mg/dL (0-200); TRIGLYCERIDES 129 mg/dL (<150)
[2018-08-22 09:31] LABS: DIRECT LDL 91 mg/dL (<100)
== END ==
LOC: OD 08:09
PROVIDERS: ATTEND Internal Medicine
DX: E53.9 Vitamin B deficiency, unspecified (principal); E55.9 Vitamin D deficiency, unspecified; E78.5 Hyperlipidemia, unspecified
CPT/HCPCS: 36415; 80061; 82306; 82607

== ENCOUNTER → 2018-11-14 | Outpatient (CLI) | payer MEDICARE ==
[2018-11-14 09:01] LABS: ABSOLUTE BASOPHILS # (AUTO) 0.1 10^3/uL (0.0-0.2); ABSOLUTE EOSINOPHILS # (AUTO) 0.3 10^3/uL (0.0-0.6); ABSOLUTE LYMPHOCYTES (AUTO) 2.9 10^3/uL (0.5-4.7); ABSOLUTE MONOCYTES (AUTO) 0.5 10^3/uL (0.1-1.4); ABSOLUTE NEUT (AUTO) 3.5 10^3/uL (1.7-8.2); BASOPHILS % (AUTO) 1.3 % (0-2); EOSINOPHILS % (AUTO) 3.7 % (0-6); HEMATOCRIT 34.3 % (36.0-47.0); HEMOGLOBIN 11.5 g/dL (12.0-15.5); LYMPHOCYTES % (AUTO) 39.9 % (13-45); MEAN CORPUSCULAR HEMOGLOBIN 29.2 pg (27.0-33.4); MEAN CORPUSCULAR HGB CONC 33.6 g/dL (32.0-36.0); MEAN CORPUSCULAR VOLUME 87 fl (80-97); MONOCYTES % (AUTO) 7.3 % (3-13); PLATELET COUNT 286 10^3/uL (150-450); RED BLOOD COUNT 3.95 10^6/uL (3.72-5.28); RED CELL DISTRIBUTION WIDTH 13.7 % (11.5-14.0); SEGMENTED NEUTROPHILS % (AUTO) 47.8 % (42-78); TOTAL CELLS COUNTED % (AUTO) 100 %; WHITE BLOOD COUNT 7.2 10^3/uL (4.0-10.5)
[2018-11-14 09:35] LABS: ALANINE AMINOTRANSFERASE 16 U/L (9-52); ALBUMIN 3.7 g/dL (3.5-5.0); ALKALINE PHOSPHATASE 86 U/L (38-126); ANION GAP 5 (5-19); ASPARTATE AMINO TRANSFERASE 22 U/L (14-36); BILIRUBIN,DIRECT 0.3 mg/dL (0.0-0.4); BILIRUBIN,TOTAL 0.4 mg/dL (0.2-1.3); BLOOD UREA NITROGEN 24 mg/dL (7-20); CALCIUM 9.4 mg/dL (8.4-10.2); CARBON DIOXIDE 30 mmol/L (22-30); CHLORIDE 107 mmol/L (98-107); CHOLESTEROL 167.18 mg/dL (0-200); GLUCOSE 80 mg/dL (75-110); POTASSIUM 4.3 mmol/L (3.6-5.0); SODIUM 141.7 mmol/L (137-145); TOTAL PROTEIN 6.5 g/dL (6.3-8.2); TRIGLYCERIDES 138 mg/dL (<150)
[2018-11-14 09:50] LABS: DIRECT LDL 93 mg/dL (<100)
[2018-11-15 10:37] LABS: CREATININE URINE 105.8 mg/dL (Not Estab.); MICROALBUMIN URINE 9.7 ug/mL (Not Estab.)
== END ==
LOC: OD 08:07
PROVIDERS: ATTEND Internal Medicine
DX: D64.9 Anemia, unspecified (principal); R10.9 Unspecified abdominal pain; E78.5 Hyperlipidemia, unspecified; E03.9 Hypothyroidism, unspecified; E53.9 Vitamin B deficiency, unspecified; E11.9 Type 2 diabetes mellitus without complications
CPT/HCPCS: 36415; 80053; 80061; 82043; 82570; 82607; 85025

== ENCOUNTER → 2018-11-22 | Outpatient (CLI) | payer MEDICARE ==
[2018-11-22 09:06] LABS: IRON(TIBC) 52.6 ug/dL (37-170)
[2018-11-22 09:09] LABS: ABSOLUTE RETICS # 0.073 10^6/uL (0.028-0.122); RETICULOCYTE COUNT (AUTO) 1.83 % (0.66-2.85)
[2018-11-23 15:36] LABS: A/G RATIO. 1.1 (0.7-1.7); ALBUMIN 3 3.3 g/dL (2.9-4.4); ALPHA-1-GLOBULIN 0.2 g/dL (0.0-0.4); GAMMA GLOBULINS 1.1 g/dL (0.4-1.8); IMMUNOGLOBULIN A 149 mg/dL (87-352); IMMUNOGLOBULIN G 1023 mg/dL (700-1600); IMMUNOGLOBULIN M 90 mg/dL (26-217); MONOCLONAL-SPIKE Not Observed g/dL (Not Observ); PROTEIN TOTAL SERUM 6.5 g/dL (6.0-8.5)
== END ==
LOC: OD 08:09
PROVIDERS: ATTEND Internal Medicine
DX: D64.9 Anemia, unspecified (principal); C90.00 Multiple myeloma not having achieved remission
CPT/HCPCS: 36415; 82668; 82728; 83540; 83550; 85045; 86320

== ENCOUNTER → 2019-02-13 | Outpatient (CLI) | payer MEDICARE ==
[2019-02-13 09:56] LABS: ALKALINE PHOSPHATASE 80 U/L (38-126); ANION GAP 8 (5-19); ASPARTATE AMINO TRANSFERASE 24 U/L (14-36); BILIRUBIN,DIRECT 0.2 mg/dL (0.0-0.4); BILIRUBIN,TOTAL 0.3 mg/dL (0.2-1.3); BLOOD UREA NITROGEN 25 mg/dL (7-20); CALCIUM 9.5 mg/dL (8.4-10.2); CARBON DIOXIDE 30 mmol/L (22-30); CHLORIDE 103 mmol/L (98-107); CHOLESTEROL 180.41 mg/dL (0-200); GLUCOSE 75 mg/dL (75-110); POTASSIUM 4.6 mmol/L (3.6-5.0); TOTAL PROTEIN 7.1 g/dL (6.3-8.2); TRIGLYCERIDES 142 mg/dL (<150)
[2019-02-13 10:07] LABS: DIRECT LDL 112 mg/dL (<100)
== END ==
LOC: OD 08:24
PROVIDERS: ATTEND Family Medicine
DX: E78.5 Hyperlipidemia, unspecified (principal); E11.22 Type 2 diabetes mellitus with diabetic chronic kidney disease; E03.9 Hypothyroidism, unspecified; N18.3 Chronic kidney disease, stage 3 (moderate); R94.5 Abnormal results of liver function studies
CPT/HCPCS: 36415; 80048; 80061; 80076; 83036; 84443

== ENCOUNTER → 2019-03-12 | Outpatient (CLI) | payer MEDICARE | LOC: OD 07:46 | PROVIDERS: ATTEND Family Medicine | DX: E03.9 Hypothyroidism, unspecified (principal) | CPT/HCPCS: 36415; 84443 ==

== ENCOUNTER → 2019-04-09 | Outpatient (CLI) | payer MEDICARE | LOC: OD 08:43 | PROVIDERS: ATTEND Family Medicine | DX: E03.9 Hypothyroidism, unspecified (principal) | CPT/HCPCS: 36415; 84443 ==

== ENCOUNTER → 2019-04-09 | Outpatient (CLI) | payer MEDICARE ==
--- NOTE | 2019-04-09 13:38 | WOMENS IMAGING REPORT ---
EXAM DESCRIPTION: 3D SCREENING MAMMO BILAT COMPLETED DATE/TIME: 04/09/2019 8:31 am REASON FOR STUDY: Z12.31 SCREENING MAMMO Z12.31 ENCNTR SCREEN MAMMOGRAM FOR MALIGNANT NEOPLASM OF B RE COMPARISON: 2016, 2017 EXAM PARAMETERS: Views: Standard craniocaudal and mediolateral oblique views of each breast recorded using digital acquisition and breast tomosynthesis. Read with the assistance of CAD. .[facility] - R2 [employer] Tester Version 9.2 LIMITATIONS: None. FINDINGS: No suspicious masses, suspicious calcifications or architectural distortion. No areas of c oncern. IMPRESSION: NEGATIVE MAMMOGRAM. BIRADS 1. BREAST DENSITY: b. There are scattered areas of fibroglandular density. BIRAD: ASSESSMENT: 1 NEGATIVE RECOMMENDATION: ROUTINE SCREENING Please continue yearly bilateral screening mammography/tomosynthesis in April 2020 COMMENT: The patient has been notified of the results by letter per SA requirements. Additional no tification policies are in place for contacting patient with suspicious or incomplete findings. Quality ID #[id number]: The [employer] recommends an annual screening mammogram for women aged 40 years or over. This facility utilizes a reminder system to ensure that all patients receive reminder letters, and/or direct phone calls for appointments. This includes reminders for routine scr eening mammograms, diagnostic mammograms, or other Breast Imaging Interventions when appropriate. Th is patient will be placed in the appropriate reminder system. TECHNICAL DOCUMENTATION: FINDING NUMBER: (1) ASSESSMENT: (1) JOB ID: [id number] [employer]- All Rights Reserved Reading location - IP/workstation name: [email or web address]
== END ==
LOC: WI 08:15
PROVIDERS: ATTEND Family Medicine
DX: Z12.31 Encounter for screening mammogram for malignant neoplasm of breast (principal)
CPT/HCPCS: 77063; 77067

== ENCOUNTER → 2019-05-14 | Outpatient (CLI) | payer MEDICARE | LOC: OD 08:07 | PROVIDERS: ATTEND Family Medicine | DX: E03.9 Hypothyroidism, unspecified (principal) | CPT/HCPCS: 36415; 84443 ==

== ENCOUNTER → 2019-07-09 | Outpatient (CLI) | payer MEDICARE ==
[2019-07-09 08:43] LABS: ALKALINE PHOSPHATASE 88 U/L (38-126); ANION GAP 9 (5-19); ASPARTATE AMINO TRANSFERASE 27 U/L (14-36); BILIRUBIN,DIRECT 0.4 mg/dL (0.0-0.4); BILIRUBIN,TOTAL 0.5 mg/dL (0.2-1.3); BLOOD UREA NITROGEN 33 mg/dL (7-20); CALCIUM 9.2 mg/dL (8.4-10.2); CARBON DIOXIDE 28 mmol/L (22-30); CHLORIDE 104 mmol/L (98-107); CHOLESTEROL 165.53 mg/dL (0-200); GLUCOSE 85 mg/dL (75-110); POTASSIUM 4.6 mmol/L (3.6-5.0); TOTAL PROTEIN 7.4 g/dL (6.3-8.2); TRIGLYCERIDES 130 mg/dL (<150)
[2019-07-09 08:54] LABS: DIRECT LDL 97 mg/dL (<100)
== END ==
LOC: OD 07:48
PROVIDERS: ATTEND Family Medicine
DX: E11.42 Type 2 diabetes mellitus with diabetic polyneuropathy (principal); E03.9 Hypothyroidism, unspecified
CPT/HCPCS: 36415; 80053; 80061; 83036; 84443

== ENCOUNTER 2019-08-25 16:50 | Emergency (ER) | payer MEDICARE ==
--- NOTE | 2019-08-25 17:17 | ER Document Report ---
ED Medical Screen (RME) - General Chief Complaint: Laceration Stated Complaint: LACERATION/LEFT INDEX FINGER Time Seen by Provider: 08/25/19 17:04 Primary Care Provider: JOSE ALDANA MD [Primary Care Provider] - Follow up as needed Mode of Arrival: Ambulatory Information source: Patient Notes: 64-year-old female presented to ED for avulsion to the end of her left index finger. She states her last tetanus was in 2016. She is alert oriented respirations regular nonlabored speaking in full sentences. The bleeding is under control. She does states she had open heart surgery when she was 4 years old for patent ductus arteriosus. She also has diabetes type 2 high blood pressure anxiety depression high cholesterol reflux. She is a former smoker she does not drink or do any drugs she lives alone and she is retired. TRAVEL OUTSIDE OF THE [place] IN LAST 30 DAYS: No - HPI Onset: Just prior to arrival Onset/Duration: Sudden Quality of pain: Achy, Sharp Severity: Moderate Pain Level: 2 Associated Symptoms: Other - Avulsion injury to the left index finger Exacerbated by: Movement Relieved by: Denies Similar symptoms previously: No Recently seen / treated by doctor: No - Related Data Smoking: Quit greater than 1 year Frequency of alcohol use: None Drug Abuse: None Allergies/Adverse Reactions: ceftriaxone sodium [From Rocephin] Allergy (Severe, Verified 12/04/16 12:24) tongue swelling,DIFFICULTY BREATHING sulfamethoxazole [From Bactrim] Allergy (Severe, Verified 12/04/16 12:24) rash trimethoprim [From Bactrim] Allergy (Severe, Verified 12/04/16 12:24) rash Cephalosporins Allergy (Unknown, Verified 12/04/16 12:24) ? Past Medical History - General Information source: Patient - Social History Cigarette use (# per day): No Frequency of alcohol use: None Drug Abuse: None Lives with: Alone Family history: Reviewed & Not Pertinent - Past Medical History Cardiac Medical History: Reports: Hx Hypercholesterolemia - CAD, Hx Hypertension, Other - Patent ductus arteriosus Pulmonary Medical History: Reports: Hx Bronchitis, Hx Pneumonia EENT Medical History: Reports: None Neurological Medical History: Reports: None Endocrine Medical History: Reports: Hx Diabetes Mellitus Type 2 - IDDM., Hx H ypothyroidism Renal/ Medical History: Reports: Hx Ovarian Cysts - HAD HYSTERECTOMY Malignancy Medical History: Reports: None GI Medical History: Reports: Hx Gastritis, Hx Gastroesophageal Reflux Disease, Hx Hiatal Hernia, Hx Colonoscopy, Hx Endoscopy Musculoskeltal Medical History: Reports Hx Arthritis, Reports Hx Muscle Spasm - neck and low back, see's bashir pain mangement, receiving injections, Reports Hx Musculoskeletal Deformity - Kyphosis, Reports Hx Musculoskeletal Trauma Skin Medical History: Reports None Psychiatric Medical History: Reports: Hx Anxiety, Hx Depression - WITH ANXIETY Traumatic Medical History: Reports: Hx Fractures - Wrist and orbital, Hx Pneumothorax Infectious Medical History: Reports: None Past Surgical History: Reports: Hx Cardiac Surgery - PDA repair, Hx Section, Hx Cholecystectomy, Hx Gastric Bypass Surgery - 2005, Hx Hysterectomy, Hx Orthopedic Surgery - Knee replacement - Immunizations Immunizations up to date: Yes Hx Diphtheria, Pertussis, Tetanus Vaccination: Yes Review of Systems - Review of Systems Constitutional: No symptoms reported EENT: No symptoms reported Cardiovascular: No symptoms reported Respiratory: No symptoms reported Gastrointestinal: No symptoms reported Genitourinary: No symptoms reported Female Genitourinary: No symptoms reported Musculoskeletal: No symptoms reported Skin: Other - Bulging to the end of the left index finger Hematologic/Lymphatic: No symptoms reported Neurological/Psychological: No symptoms reported -: Yes All other systems reviewed and negative Physical Exam - Vital signs Vitals: Temp Pulse Resp BP Pulse Ox 99.1 F 92 20 132/88 H 96 08/25/19 16:52 08/25/19 16:52 08/25/19 16:52 08/25/19 16:52 08/25/19 16:52 Interpretation: Normal - General General appearance: Appears well, Alert - HEENT Head: Normocephalic, Atraumatic Eyes: Normal Pupils: PERRL - Respiratory Respiratory status: No respiratory distress Chest status: Nontender Breath sounds: Normal Chest palpation: Normal - Cardiovascular Rhythm: Regular Heart sounds: Normal auscultation Murmur: No - Abdominal Inspection: Normal Distension: No distension Bowel sounds: Normal Tenderness: Nontender Organomegaly: No organomegaly - Back Back: Normal, Nontender - Extremities General upper extremity: Normal color, Normal ROM, Normal temperature General lower extremity: Normal inspection, Nontender, Normal color, Normal ROM, Normal temperature, Normal weight bearing. No: Daniela's sign Shoulder: Normal, Nontender Arm: Normal, Nontender Elbow: Normal, Nontender Forearm: Normal Wrist: Normal, Nontender Hand: Nail injury, No evidence of human bite, No evidence of FB, Other - Avulsion injury to the end of the left index finger. No: Tender, Abrasion, Deformity, Dislocation, Ecchymosis, Instability, Laceration, Swelling, Tendon deficit - Neurological Neuro grossly intact: Yes Cognition: Normal Orientation: AAOx4 Olamide Coma Scale Eye Opening: Spontaneous [place] Coma Scale Verbal: Oriented Olamide Coma Scale Motor: Obeys Commands [place] Coma Scale Total: 15 Speech: Normal Motor strength normal: LUE, RUE, LLE, RLE Sensory: Normal - Psychological Associated symptoms: Normal affect, Normal mood - Skin Skin Temperature: Warm Skin Moisture: Dry Skin Color: Normal Course - Re-evaluation Re-evalutation: 08/25/19 18:05 Chest x-ray with patient and written report of x-ray given the patient. Patient's finger was cleaned well with surgical splint up, rinsed with saline, patted dry bacitracin and Xeroform gauze then covered with Kerlix wrap and Covan and a finger splint applied over top. She was given instructions on how to redress her finger at home. Patient verbalized understanding and agreement with treatment plan. Patient is to follow-up with orthopedics. As patient is allergic to cephalosporins and sulfa she was started on doxycycline. - Vital Signs Vital signs: Temp Pulse Resp BP Pulse Ox 99.1 F 92 20 132/88 H 96 08/25/19 16:52 08/25/19 16:52 08/25/19 16:52 08/25/19 16:52 08/25/19 16:52 - Diagnostic Test Radiology reviewed: Image reviewed, Reports reviewed Doctor's Discharge - Discharge Clinical Impression: Avulsion injury, Open fracture of tuft of distal phalanx of finger Condition: Stable Disposition: HOME, SELF-CARE Additional Instructions: Avulsion Injury You have an avulsion injury -- a loss of skin which can't be helped by suturing. When large, these injuries can require skin grafting. Smaller defects or shallow avulsions usually heal well with dressings. Keep the dressing clean and dry. If the bandage becomes wet, remove it, blot the area dry, and apply a fresh dressing. Change the dressings every day. Complete healing may take anywhere from 10 days to two months. The healing time depends on the size and depth of the avulsion and on the amount of crushing of underlying tissues. Re-examination by the physician is often necessary. If any signs of infection occur (swelling, redness, increasing tenderness, red streaks, profuse purulent drainage from the avulsion, tender lumps in the armpit or groin above the avulsion, or fever), see your doctor immediately. Tuft Fracture of the Finger The tip of your finger is broken (beneath the finger nail). While painful, this type of fracture is not serious. You can expect the bone to heal within three to four weeks. Elevating and ice packing the finger will help greatly in reducing pain and swelling. You will probably need a protective splint, initially. When you can push firmly on the tip of your finger without any pain, you no longer need to use the splint. If the fingernail becomes black and painful, bleeding has occurred under the nail. This may need to be drained. Sometimes the nail must be removed. Occasionally, the tissue under the nail must be sewn back together. Call the doctor or return for examination if pain becomes severe, or if numbness or severe discoloration occurs. Doxycycline Doxycycline (Vibramycin, Doryx) is an antibiotic of the tetracycline family. This type of drug is useful for infections of the respiratory tract and genital tract, and is sometimes used for intestinal infections. Unlike most tetracyclines, doxycycline can be taken with food. It is longe r acting, and (usually) less prone to side effects than regular tetracycline. Tetracycline antibiotics can stain immature teeth and SHOULD NOT BE TAKEN BY CHILDREN, NURSING MOTHERS, OR WOMEN. Tetracyclines can make you more prone to sunburn. Abdominal cramping, nausea, and diarrhea are occasional side effects. Women may experience vaginal yeast infections. Call the doctor at once if you develop hives, itching, shortness of breath, or lightheadedness. Acetaminophen Acetaminophen may be taken for pain relief or fever control. It's much safer than aspirin, offering a wider range of "safe" dosages. It is safe during . Some brand names are Tylenol, Panadol, Datril, Anacin 3, Tempra, and Liquiprin. Acetaminophen can be repeated every four hours. The following are maximum recommended dosages: WEIGHT Dose Drops Elixir Chewable(80mg) (LBS.) drprs=droppers tsp=teaspoon 6 40 mg .4 ml (1/2) 6-11 80 mg .8 ml (full) 1/2 tsp 1 tab 12-16 120 mg 1 1/2 drprs 3/4 tsp 1 1/2 tabs 17-23 160 mg 2 drprs 1 tsp 2 tabs 24-30 240 mg 3 drprs 1 1/2 tsp 3 tabs 30-35 320 mg 2 tsp 4 tabs 36-41 360 mg 2 1/4 tsp 4 1/2 tabs 42-47 400 mg 2 1/2 tsp 5 tabs 48-53 480 mg 3 tsp 6 tabs 54-59 520 mg 3 1/4 tsp 6 1/2 tabs 60-64 560 mg 3 1/2 tsp 7 tabs 65-70 600 mg 3 3/4 tsp 7 1/2 tabs 71-76 640 mg 4 tsp 8 tabs 77-82 720 mg 4 1/2 tsp 9 tabs 83-88 800 mg 5 tsp 10 tabs >89 pounds or adults 650 mg to 900 mg Acetaminophen can be repeated every four hours. Maximum daily dose not to exceed 4000 mg. These maximum recommended dosages are slightly higher than the dosages written on the product container, but these dosages are very safe and well below the toxic dosage for acetaminophen. Ibuprofen Ibuprofen is an excellent, safe drug for pain control. In addition, it has potent antiinflammatory effects which are beneficial, especially in the treatment of injuries, arthritis, or tendonitis. It's best to take ibuprofen with food. Persons with ulcer disease or allergy to aspirin should notify their physician of this before taking ibuprofen. Take the medication exactly as prescribed. Don't take additional doses unless instructed to do so by your doctor. If you develop wheezing, shortness of breath, hives, faintness, stomach pain, vomiting, or dark black stools, return for re-evaluation at once. Cleaned well with surgical scrub, rinsed with clean water, apply bacitracin and Xeroform gauze and then covered with gauze and Kerlix. Then cover with finger splint. Please change this dressing for the next 2 days. FOLLOW-UP CARE: If you have been referred to a physician for follow-up care, call the physicians office for an appointment as you were instructed or within the next two days. If you experience worsening or a significant change in your symptoms, notify the physician immediately or return to the Emergency Department at any time for re-evaluation. Prescriptions: Doxycycline Monohydrate 100 mg PO BID #20 capsule Forms: Elevated Blood Pressure Referrals: JOSE ALDANA MD [Primary Care Provider] - Follow up as needed DENISSE ASENCIO MD [ACTIVE PROVISIONAL STAFF] - Follow up in 3-5 days
--- NOTE | 2019-08-25 17:40 | RADIOLOGY REPORT (SQ) ---
EXAM DESCRIPTION: FINGER LEFT IMAGES COMPLETED DATE/TIME: 08/25/2019 4:22 pm REASON FOR STUDY: Avulsion end of left index finger COMPARISON: None. NUMBER OF VIEWS: Three views. TECHNIQUE: AP, lateral, and oblique images acquired of the left 2nd digit LIMITATIONS: Overlying bandage material obscures detail. FINDINGS: MINERALIZATION: Normal. BONES: There may be a nondisplaced fracture of the distal tuft of the 2nd digit, no angulation or dis placement. Normal alignment at the DIP and PIP joints. SOFT TISSUES: No soft tissue swelling. No foreign body. OTHER: No other significant finding. IMPRESSION: Possible nondisplaced fracture of the distal tuft 2nd digit distal phalanx. TECHNICAL DOCUMENTATION: JOB ID: [id number] [employer]- All Rights Reserved Reading location - IP/workstation name: [email or web address]
[2019-08-25] MEDS ORDERED: DOXYCYCLINE HYCLATE 100 MG TABLET PO ONE (18:03)
[2019-08-25 18:17] VITALS: BP 126/69
== END 2019-08-25 18:10 | disposition home or self-care (01) ==
LOC: ER 16:50
DX: S62.631B Displaced fracture of distal phalanx of left index finger, initial encounter for open fracture (principal); W45.8XXA Other foreign body or object entering through skin, initial encounter; Y93.D2 Activity, sewing; E11.9 Type 2 diabetes mellitus without complications; I10 Essential (primary) hypertension; I25.10 Atherosclerotic heart disease of native coronary artery without angina pectoris; Z87.891 Personal history of nicotine dependence; Z88.1 Allergy status to other antibiotic agents; Z98.84 Bariatric surgery status; Z88.2 Allergy status to sulfonamides
CPT/HCPCS: 99283; 73140; A9270

== ENCOUNTER → 2019-12-04 | Outpatient (CLI) | payer MEDICARE ==
[2019-12-04 08:59] LABS: BLOOD UREA NITROGEN 24 mg/dL (7-20); CALCIUM 9.2 mg/dL (8.4-10.2); CARBON DIOXIDE 26 mmol/L (22-30); CHLORIDE 110 mmol/L (98-107); GLUCOSE 84 mg/dL (75-110); POTASSIUM 4.4 mmol/L (3.6-5.0)
[2019-12-04 09:46] LABS: ANION GAP 4 (5-19)
== END ==
LOC: OD 07:58
PROVIDERS: ATTEND Family Medicine
DX: R94.4 Abnormal results of kidney function studies (principal)
CPT/HCPCS: 36415; 80048

== ENCOUNTER → 2020-01-29 | Outpatient (CLI) | payer MEDICARE ==
[2020-01-29 09:26] LABS: ALBUMIN 3.8 g/dL (3.5-5.0); ALKALINE PHOSPHATASE 74 U/L (38-126); ANION GAP 7 (5-19); ASPARTATE AMINO TRANSFERASE 44 U/L (14-36); BILIRUBIN,DIRECT 0.3 mg/dL (0.0-0.4); BILIRUBIN,TOTAL 0.3 mg/dL (0.2-1.3); BLOOD UREA NITROGEN 28 mg/dL (7-20); CALCIUM 8.9 mg/dL (8.4-10.2); CARBON DIOXIDE 28 mmol/L (22-30); CHLORIDE 108 mmol/L (98-107); CHOLESTEROL 128.05 mg/dL (0-200); GLUCOSE 72 mg/dL (75-110); POTASSIUM 4.2 mmol/L (3.6-5.0); TOTAL PROTEIN 6.5 g/dL (6.3-8.2); TRIGLYCERIDES 116 mg/dL (<150)
[2020-01-29 09:36] LABS: DIRECT LDL 57 mg/dL (<100)
[2020-01-30 11:38] LABS: CREATININE URINE 103.4 mg/dL (Not Estab.); MICROALBUMIN URINE <3.0 ug/mL (Not Estab.)
== END ==
LOC: OD 07:58
PROVIDERS: ATTEND Family Medicine
DX: E11.9 Type 2 diabetes mellitus without complications (principal); E78.5 Hyperlipidemia, unspecified; E03.9 Hypothyroidism, unspecified
CPT/HCPCS: 36415; 80053; 80061; 82043; 82570; 83036; 84443

== ENCOUNTER → 2020-04-12 | Outpatient (CLI) | payer MEDICARE ==
[2020-04-12 12:41] VITALS: BP 111/72
--- NOTE | 2020-04-12 12:41 | ER RDC ASSESSMENT REPORT ---
Intake - In the Last 14 days Have you traveled outside [place]?: No Have you been in close contact with someone CONFIRMED: Yes Worked in Healthcare?: No - Symptoms Subjective Fever(Valley feverish): No Chills: No Muscule Aches: No Runny Nose: Yes Sore Throat: No Cough (New or worsening chronic cough): Yes Shortness of breath: No Nausea or Vomiting: No Headache: No Abdominal Pain: No Diarrhea(3 or more loose stools in last 24 hours): Yes - Do you have any of the following Chronic lung disease: Asthma or emphysema or COPD: No Cystic Fibrosis: No Diabetes: Yes Diabetes Comment: Patient reports history of type 2 diabetes. High Blood Pressure: Yes Cardiovascular Disease: Yes Chronic Kidney Disease: No Chronic Liver Disease: No Chronic blood disorder like Sickle Cell Disease: No Weak immune system due to disease or medication: No Neurologic condition that limits movement: No Developmental delay - Moderate to Severe: No Recent (within past 2 weeks) or current : No Morbid Obesity (>100 pounds over ideal weight): No Other Comment: Patient reports a history of hypothyroid, anxiety, and depression. - Objective Temperature: 98.6 F Pulse Rate: 74 Respiratory Rate: 16 Blood Pressure: 111/72 O2 Sat by Pulse Oximetry: 97 Objective: Patient is a well-appearing 64-year-old female, who presents today for COVID-19 screening. Disposition: Home; Selfcare General - General Stated Complaint: Upper respiratory symptoms Mode of Arrival: Ambulatory Information source: Patient Notes: The patient was evaluated during the global COVID-19 pandemic. That diagnosis was suspected/considered upon initial presentation. Their evaluation, treatment, and testing was consistent with current guidelines for patients who present with complaints or symptoms that may be related to COVID-19. Patient reports having close contact exposure to a COVID-19 lab confirmed positive individual. - HPI Patient complains to provider of: Upper respiratory symptoms Onset: Last week Onset/Duration: Constant, Persistent Quality of pain: No pain Severity: None Pain Level: Denies Associated symptoms: Nonproductive cough, Diarrhea, Rhinnorhea Exacerbated by: Denies Relieved by: Denies Similar symptoms previously: No Recently seen / treated by doctor: No - Related Data Allergies/Adverse Reactions: ceftriaxone sodium [From Rocephin] Allergy (Severe, Verified 12/04/16 12:24) tongue swelling,DIFFICULTY BREATHING sulfamethoxazole [From Bactrim] Allergy (Severe, Verified 12/04/16 12:24) rash trimethoprim [From Bactrim] Allergy (Severe, Verified 12/04/16 12:24) rash Cephalosporins Allergy (Unknown, Verified 12/04/16 12:24) ? Past Medical History - General Information source: Patient - Social History Smoking Status: Former Smoker Cigarette use (# per day): No - Patient reports she quit smoking 1 year ago Chew tobacco use (# tins/day): No Smoking Education Provided: Yes Frequency of alcohol use: None Drug Abuse: None Occupation: Retired Lives with: Family Family History: Arthritis, COPD, CVA, DM, Hyperlipidemia, Hypertension, Malignancy, Thyroid Disfunction Patient has suicidal ideation: No Patient has homicidal ideation: No - Past Medical History Cardiac Medical History: Reports: Hx Hypercholesterolemia - CAD, Hx Hypertension Denies: Hx Atrial Fibrillation, Hx Congestive Heart Failure, Hx Coronary Artery Disease, Hx Heart Attack, Hx Peripheral Vascular Disease, Hx Pulmonary Embolism, Hx Heart Murmur Pulmonary Medical History: Reports: Hx Bronchitis, Hx Pneumonia Denies: Hx Asthma, Hx COPD, Hx Respiratory Failure, Hx Sleep Apnea, Hx Tuberculosis Neurological Medical History: Denies: Hx Cerebrovascular Accident, Hx Seizures, Hx Parkinson's Disease Endocrine Medical History: Reports: Hx Diabetes Mellitus Type 2 - IDDM., Hx Hypothyroidism. Denies: Hx Graves' Disease, Hx Hyperthyroidism Renal/ Medical History: Reports: Hx Ovarian Cysts - HAD HYSTERECTOMY. Denies: Hx End Stage Renal Disease, Hx Kidney Stones, Hx Peritoneal Dialysis, Hx Pelvic Inflammatory Disease Malignancy Medical History: Denies: Hx Breast Cancer, Hx Cervical Cancer, Hx Leukemia, Hx Lung Cancer, Hx Ovarian Cancer GI Medical History: Reports: Hx Gastritis, Hx Gastroesophageal Reflux Disease, Hx Hiatal Hernia, Hx Colonoscopy, Hx Endoscopy. Denies: Hx Crohn's Disease, Hx Irritable Bowel, Hx Liver Failure, Hx Pancreatitis, Hx Ulcer Musculoskeletal Medical History: Reports Hx Arthritis, Denies Hx Fibromyalgia, Denies Hx Multiple Sclerosis, Denies Hx Muscular Dystrophy, Reports Hx Muscle Spasm - neck and low back, see's bashir pain mangement, receiving injections, Reports Hx Musculoskeletal Deformity - Kyphosis, Reports Hx Musculoskeletal Trauma, Denies Hx Systemic Lupus Erythematosus Psychiatric Medical History: Reports: Hx Anxiety, Hx Depression - WITH ANXIETY Denies: Hx Bipolar Disorder, Hx Dementia, Hx Post Traumatic Stress Disorder, Hx Schizophrenia Traumatic Medical History: Reports: Hx Fractures - Wrist and orbital, Hx Pneumothorax Infectious Medical History: Denies: Hx HIV Past Surgical History: Reports: Hx Cardiac Surgery - PDA repair, Hx Section, Hx Cholecystectomy, Hx Gastric Bypass Surgery - 2006, Hx Hysterectomy, Hx Orthopedic Surgery - Knee replacement. Denies: Hx Appendectomy, Hx Bowel Surgery, Hx Colostomy, Hx Coronary Artery Bypass Graft, Hx Herniorrhaphy, Hx Mastectomy, Hx Pacemaker, Hx Tonsillectomy, Hx Tubal Ligation Physical Exam - General General appearance: Appears well In distress: None Notes: PHYSICAL EXAMINATION: GENERAL: Well-appearing with No Acute Distress noted. HEAD: Atraumatic, Normocephalic. EYES: Sclera anicteric, Conjunctiva are pink and moist. ENT: Nares patent. Moist mucous membranes. NECK: Normal range of motion, supple without lymphadenopathy. LUNGS: CTAB and equal. No wheezes rales or rhonchi. HEART: Regular rate and rhythm without murmurs. ABDOMEN: Soft, nontender, normal bowel sounds, no guarding. EXTREMITIES: Normal range of motion, no pitting edema. No cyanosis. BACK: No midline or CVA tenderness. No step-off or deformity. NEUROLOGICAL: Cranial nerves grossly intact. Normal speech. Normal gait. PSYCH: Calm, Cooperative, and answers questions appropriately. Normal mood and affect. SKIN: Warm, Dry, Normal color and Turgor, No obvious lesions or rash noted. Diagnostic Results Laboratory Results: Patient advised at this time they are considered a Person Under Investigation (PUI) for the COVID-19 Coronavirus. They have been made aware it is currently taking 3 to 5 days to receive their results. Patient advised The [facility] Department will call to notify them of a POSITIVE result, and an [facility] steam room attendant will call to notify them of a NEGATIVE result. Patient Education/Counseling Counseling/Education: Patient presents with upper respiratory symptoms worrisome for possible COVID- 19. Patient does not have symptoms worrisome as an emergency such as difficulty breathing, shortness of breath, chest pain, pressure, confusion or cyanosis. Patient appears suitable for discharge. Patient's vital signs are stable and patient is nontoxic in appearance. Good return precautions have been discussed with patient, patient verbalized understanding and is agreeable with discharge plan of care at this time. Patient provided COVID-19 discharge instructions to include: As a person under investigation for COVID-19, the [place] department of Health and Human Services, division of public health advises you to adhere to the following guidance until your test results are reported to you. If your test result is positive, you will receive additional information from your provider and your local health department at that time. Remain at home until you are cleared by the health provider or public health authorities. Keep a log of visitors to your home, notify any visitors to your home of your isolation status. If you plan to move to a new address or leave the county, notify the local health department in your County. Call your doctor or seek care if you have an urgent medical need. Before seeking medical care, call ahead to get instructions from the provider before arriving at the medical office clinic or hospital. Notify them that you are being tested for the virus that causes COVID-19 so that arrangements can be made, as necessary, to prevent transmission to others in the healthcare setting. Next, notify the local health department in your county. If a medical emergency arises and you need to call 911, inform dispatch and the first responders that you are being tested for the virus that causes COVID-19. Next, notify the local health department in your county. Guidance for worsening S/SX: For worsening symptoms, patient has been advised to contact their Primary Care Provider, or go to the nearest Emergency Department. RDC Discharge - Discharge Clinical Impression: COVID-19 Screening URI (upper respiratory infection) Qualifiers: URI type: unspecified URI Qualified Code(s): J06.9 - Acute upper respiratory infection, unspecified Condition: Stable Disposition: Home; Selfcare
== END ==
LOC: RDC 10:37
PROVIDERS: ATTEND Nurse Practitioner Family
DX: J06.9 Acute upper respiratory infection, unspecified (principal); Z20.828 Contact with and (suspected) exposure to other viral communicable diseases; R05 Cough; J34.89 Other specified disorders of nose and nasal sinuses; R19.7 Diarrhea, unspecified; E11.9 Type 2 diabetes mellitus without complications; I10 Essential (primary) hypertension; E78.00 Pure hypercholesterolemia, unspecified; E03.9 Hypothyroidism, unspecified; G35 Multiple sclerosis; K21.9 Gastro-esophageal reflux disease without esophagitis; F41.9 Anxiety disorder, unspecified; F32.9 Major depressive disorder, single episode, unspecified; Z88.1 Allergy status to other antibiotic agents; Z87.891 Personal history of nicotine dependence; Z87.01 Personal history of pneumonia (recurrent); Z79.4 Long term (current) use of insulin
CPT/HCPCS: 99201; U0003; G0463; C9803; 87635; 99211

== ENCOUNTER → 2020-04-28 | Outpatient (CLI) | payer MEDICARE ==
--- NOTE | 2020-04-28 09:48 | WOMENS IMAGING REPORT ---
EXAM DESCRIPTION: BONE DENSITY HIP/SPINE IMAGES COMPLETED DATE/TIME: 04/28/2020 9:12 am REASON FOR STUDY: Z78.0 Z12.31 ENCNTR SCREEN MAMMOGRAM FOR MALIGNANT NEOPLASM OF GURPREET Z78.0 ASYMPTO MATIC MENOPAUSAL STATE COMPARISON: None. TECHNIQUE: Dual-Energy X-ray Absorptiometry (DEXA) of the AP Spine and Hip. LIMITATIONS: None. FINDINGS: LUMBAR SPINE: The bone mineral density (BMD) measured from L1-L4 in the AP projection correlates with a T-score of -2.4, which is osteopenia as defined by the World Health Organization. BMD Change vs Baseline: N/A HIP: The bone mineral density (BMD) measured in the left femoral neck correlates with a T-score of -3.1, w hich is osteoporosis as defined by the World Health Organization. BMD Change vs Baseline: N/A 10 year Fracture Risk Assessment: Major Osteoporotic Fracture: None reported because some T-scores are at or below -2.5. Hip Fracture: None reported because some T-scores are at or below -2.5. IMPRESSION: 1. LUMBAR SPINE WHO CLASSIFICATION: OSTEOPENIA. 2. HIP WHO CLASSIFICATION: OSTEOPOROSIS. OVERALL ASSESSMENT: WHO CLASSIFICATION: OSTEOPOROSIS. COMMENT: The World Health Organization defines low BMD as follows: T-score: Normal: At or above -1.0 Osteopenia: Between -1.0 and -2.5 Osteoporosis: At or below -2.5 without fractures Established osteoporosis: At or below -2.5 with fractures In general, you may wish to consider: Diagnosis Treatment Follow-up DEXA Normal BMD Prevention 2-3 years Osteopenia Prevention/Therapy 1-2 years Osteoporosis Therapy Yearly TECHNICAL DOCUMENTATION: JOB ID: [id number] [employer]- All Rights Reserved Reading location - IP/workstation name: [email or web address]
--- NOTE | 2020-04-29 12:45 | WOMENS IMAGING REPORT ---
EXAM DESCRIPTION: 3D SCREENING MAMMO BILAT IMAGES COMPLETED DATE/TIME: 04/28/2020 9:12 am REASON FOR STUDY: ROUTINE SCREENING MAMMOGRAM Z12.31 Z12.31 ENCNTR SCREEN MAMMOGRAM FOR MALIGNANT N EOPLASM OF GURPREET Z78.0 ASYMPTOMATIC MENOPAUSAL STATE COMPARISON: 04/09/2019 and 03/21/2018. EXAM PARAMETERS: Views: Standard craniocaudal and mediolateral oblique views of each breast recorded using digital acquisition and breast tomosynthesis. Read with the assistance of CAD. .[facility] - [employer] Version 9.2 LIMITATIONS: None. FINDINGS: No suspicious masses, suspicious calcifications or architectural distortion. No areas of c oncern. IMPRESSION: NEGATIVE MAMMOGRAM. BIRADS 1. BREAST DENSITY: b. There are scattered areas of fibroglandular density. BIRAD: ASSESSMENT: 1 NEGATIVE RECOMMENDATION: ROUTINE SCREENING COMMENT: The patient has been notified of the results by letter per MQSA requirements. Additional no tification policies are in place for contacting patient with suspicious or incomplete findings. Quality ID #[id number]: [employer] [place] [employer] recommends an annual screening mammogram for women aged 40 years or over. This facility utilizes a reminder system to ensure that all patients receive reminder letters, and/or direct phone calls for appointments. This includes reminders for routine scr eening mammograms, diagnostic mammograms, or other Breast Imaging Interventions when appropriate. Th is patient will be placed in the appropriate reminder system. TECHNICAL DOCUMENTATION: FINDING NUMBER: (1) ASSESSMENT: (1) JOB ID: [id number] 2010 [employer]- All Rights Reserved Reading location - IP/workstation name: [email or web address]
== END ==
LOC: WI 08:44
PROVIDERS: ATTEND Family Medicine
DX: Z12.31 Encounter for screening mammogram for malignant neoplasm of breast (principal); Z78.0 Asymptomatic menopausal state; M81.0 Age-related osteoporosis without current pathological fracture
CPT/HCPCS: 77063; 77067; 77080

== ENCOUNTER → 2020-05-12 | Outpatient (CLI) | payer MEDICARE ==
[2020-05-12 09:52] LABS: ANION GAP 7 (5-19); BLOOD UREA NITROGEN 31 mg/dL (7-20); CALCIUM 9.4 mg/dL (8.4-10.2); CARBON DIOXIDE 25 mmol/L (22-30); CHLORIDE 110 mmol/L (98-107); GLUCOSE 70 mg/dL (75-110)
== END ==
LOC: OD 08:33
PROVIDERS: ATTEND Family Medicine
DX: E11.9 Type 2 diabetes mellitus without complications (principal)
CPT/HCPCS: 36415; 80048; 83036